=== PATIENT | male | born 1955 | race Caucasian/White ===

== ENCOUNTER 2023-03-15 14:20 | Inpatient (IN) ==
--- NOTE | 2023-03-15 14:27 | ED Triage Note ---
Date of Service March 15, 2023 History of Present Illness This patient was briefly evaluated while in triage. An abbreviated physical exam was performed. This patient is a 68-year-old Male who presents to the ED for evaluation of abdominal pain and decreased appetite. Symptoms started after a colonoscopy 1 month ago. He reports being admitted to hospital in [place] about 1 week ago for similar symptoms and treated to MATEUSZ and dehydration. He states symptoms feel the same as when he presented at that time. Reports chills, no fevers. Multiple episodes of vomiting and diarrhea. Reports colonoscopy was unremarkable. Referred to ED by PCP. Physical Exam Vital signs demonstrate hypotensive 70/48. HR 70 spO2 98 Constitutional: alert and oriented x3. no acute distress. Mentating appropriately Respiratory: lungs are clear to auscultation without wheezes, rhonchi, or rales bilaterally. equal chest rise. normal respiratory effort, no accessory muscle use. Cardiovascular: normal heart sounds without murmur. regular rate and rhythm. GI: abdomen is soft, nondistended. Mild tendernessnl bowel sounds present throughout. No palpable masses. No rebound tenderness or guarding. No CVA tenderness Psych:appropriate mood and affect. Initial orders for labs and / or imaging were placed and patient was taken immediately to room for further evaluation. Please see further documentation for the full ED course.
[2023-03-15] MEDS ORDERED: SODIUM CHLORIDE 0.9% 1000ML 1,000 ML IV STA (14:49)
[2023-03-15 15:19] LABS: iSTAT Creatinine 4.5 mg/dl (0.6-1.3); iSTAT Hemoglobin 16.7 g/dl (14.0-18.0); iSTAT Ionized Calcium 1.32 mmol/l (1.12-1.32)
[2023-03-15 15:27] LABS: Basophils # (auto) 0.03 K/uL (0-0.2); Basophils % (auto) 0.2 %; Eosinophils # (auto) 0.08 K/uL (0-0.50); Eosinophils % (auto) 0.6 %; Hematocrit (blood only) 46.2 % (42.0-52.0); Hemoglobin 15.7 g/dl (14.0-18.0); Immature Granulocytes # (auto) 0.06 K/uL (0.01-0.20); Immature Granulocytes % (auto) 0.5 %; Lymphocytes # (auto) 1.61 K/uL (1.2-3.4); Lymphocytes % (auto) 12.3 %; Mean Corpuscular Volume 97.1 fL (80.0-100.0); Mean Platelet Volume 9.6 fL (9.4-12.4); Monocytes # (auto) 1.41 K/uL (0.11-0.59); Monocytes % (auto) 10.8 %; Neutrophils # (auto) 9.89 K/uL (1.40-6.50); Neutrophils % (auto) 75.6 %; Platelet Count 334 K/uL (130-400); RDW Coefficient of Variation 13.8 % (11.5-14.5); RDW Standard Deviation 49.8 fL (36.4-46.3); Red Blood Count 4.76 M/uL (4.70-6.10); White Blood Count 13.08 K/ul (4.8-10.8)
--- NOTE | 2023-03-15 15:43 | XRay Report ---
XR chest 1V portable CLINICAL HISTORY: abd pain TECHNIQUE: Single frontal radiograph of the chest was obtained. Comparison: None available at the time of this dictation. FINDINGS: No lines and tubes are seen. The cardiomediastinal silhouette is normal. The lungs are clear. No evid ence of pleural effusion or pneumothorax. IMPRESSION: No acute chest disease. ACT 112: Negative or not required by law. Electronically signed by: Vance Lizarraga M.D. 03/15/2023 3:41 PM
[2023-03-15 15:47] LABS: Albumin Globulin Ratio 1.3 (0.9-2); Albumin Level 3.8 gm/dl (3.4-5.0); BUN Creatinine Ratio 16.5 (10-20); Bilirubin,Total 0.6 mg/dl (0.2-1.0); Calcium 9.2 mg/dl (8.6-10.3); Creatinine Clr Calc Pharmacy 22.9 ml/min; Est GFR (African American) 16.9 ml/min; Est GFR (Non-African American) 14.6 ml/min; Potassium 3.9 mmol/L (3.5-5.1); Total Protein 6.8 gm/dl (6.0-8.3)
--- NOTE | 2023-03-15 15:50 | Emergency Department Note ---
Impression & Plan Acute hypotension, Acute renal failure, Acute upper abdominal pain, Abnormal CT scan, gallbladder ED Provider Note INFORMANT: Patient and family ED PROVIDER(S): Lui English MD CHIEF COMPLAINT: Illness PLAN: Disposition: Admitted Condition: Good Outpatient prescription management: none Referral: None MEDICAL DECISION MAKING: Patient presented emergency [place] because of illness and was mildly hypotensive. He had an IV established and was given IV fluids. He received 2.5 L in the emergency department. His hypotension resolved. His work-up revealed the presence of a mild leukocytosis and a significant elevation of his creatinine concerning for acute renal failure. Cardiac troponin negative. The patient's LFTs and lipase negative. COVID pending. I suspect that this may be due to dehydration and partial. CT imaging of the abdomen pelvis was ordered. Radiology noted no significant issues regarding the renal failure however they raise concerns about his gallbladder. Ultrasound imaging of the gallbladder and kidneys was ordered. I discussed further management in the hospital with the patient and family. They were in agreement. [facility] Patient was evaluated in the ER and admitted for further management. Discussed with entry level account manager After review of the information above and other included data, I feel the patient requires admission. Triage Nursing notes reviewed and agree them. Vital Signs: reviewed and remarkable for hypotension Prior /Outside records reviewed: Prior Hospitalization record reviewed Differential diagnosis: hypovolemia, Infection, dehydration, metabolic abnormality, hypo/hyperglycemia, electrolyte disturbance, anemia, hypoxia, cardiac sources, intracerebral event, toxicologic, neurologic, as well as other pathologies. Diagnostics, as interpreted by me: ECG: Twelve-lead ECG reveals a sinus rhythm sinus arrhythmia at first-degree AV block at [address] elevation or depression. Cardiac Monitoring: Cardiac monitoring ordered by me: The patient was placed on continuous cardiac monitoring and observed. It revealed a normal sinus rhythm at 71 beats per minute without ectopy or evidence of dysrhythmia. Medical decision rules: none Imaging studies: CT imaging as noted above. HPI: The patient is a 68 year old male who presents to the Emergency Room with complaints of hypotension. This started today in the office at [facility] and is persisting. The patient also notes the following associated symptoms, abdominal pain, chills. Recent admission for dehydration due to N/V/D at [facility]. The patient has be given no medication today for relieving factors. Current pain is rated as 6/10. Pt denies LOC, headache, fevers, chills, diaphoresis, visual changes, neck pain, chest pain, breathing difficulties, nausea, vomiting, abdominal pain, back pain, melena, hematochezia, urinary symptoms, numbness, weakness, lymphadenopathy, rash, or other complaints. PAST MEDICAL HISTORY: See Below, Sarabjit PAST SURGICAL HISTORY: See Below, SOCIAL HISTORY: See Below, non-smoker HOME MEDICATIONS: See Below ALLERGIES: See Below VITALS: See Below PHYSICAL EXAMINATION: GENERAL: Awake, alert, tired-appearing, in no distress HENT: Normocephalic, atraumatic. Oropharynx unremarkable. EYES: Normal conjunctiva. Sclera non-icteric. NECK: Inspection normal. Non-tender. Supple. No nuchal rigidity. FROM. No masses. RESPIRATORY: Clear to auscultation. No wheezes. No rales. Normal respiratory effort. CARDIAC: Normal rate. Normal rhythm. No murmurs. No rubs. Extremities warm and well perfused. Pulses equal. No JVD. GI: Soft, non-distended. No tenderness to palpation. No rebound or guarding. No masses. RECTAL: Deferred. MUSCULOSKELETAL: Atraumatic. Chest examination reveals no tenderness. The back is symmetrical on inspection without obvious abnormality. There is no CVA tenderness to palpation. No joint edema. LOWER EXTREMITIES: Calves are equal size bilaterally and non-tender. No edema. No discoloration. NEURO: Normal sensorium. No sensory or motor deficits noted. SKIN: No rash or jaundice noted. Past Med/Surg History Medical History (Updated 03/15/23 @ 19:11 by Lui English MD) HTN (hypertension) Sinusitis ENT Dr. 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 Feels Safe at Home: Yes Home Meds Home Medications Medication Instructions Recorded Confirmed Saline Nasal Levasy 0 spray NA DIRECTED PRN Nasal 03/15/23 Congestion Vitamin E Tab 180 mg PO DAILY 03/15/23 amlodipine 10 mg tablet 5 mg PO DAILY 03/15/23 03/15/23 ascorbic acid (vitamin C) 1,000 mg 1,000 mg PO DIRECTED 03/15/23 03/15/23 capsule aspirin 81 mg tablet,delayed 81 mg PO DAILY 03/15/23 03/15/23 release (Adult Low Dose Aspirin) baclofen 10 mg tablet 10 mg PO TID 03/15/23 03/15/23 cetirizine 10 mg capsule (Zyrtec) 10 mg PO DAILY 03/15/23 03/15/23 cholecalciferol (vitamin D3) 50 50 mcg PO DAILY 03/15/23 03/15/23 mcg (2,000 unit) tablet (Vitamin D3) cyanocobalamin (vitamin B-12) 2,500 mcg sublingual DAILY 03/15/23 03/15/23 2,500 mcg sublingual lozenge diclofenac sodium 75 mg 75 mg PO BID 03/15/23 03/15/23 tablet,delayed release fluticasone propionate 50 2 spray intranasal DAILY 03/15/23 03/15/23 mcg/actuation nasal spray,suspension gabapentin 100 mg capsule 100 mg PO TID 03/15/23 03/15/23 glucosamine sulfate 750 mg tablet 750 mg PO DAILY 03/15/23 03/15/23 (OptiFlex-G) lactobacillus combination no.4 3 0 mmu cells PO DAILY 03/15/23 03/15/23 billion cell capsule (Probiotic) ondansetron 4 mg disintegrating 4 mg translingual Q8 PRN 03/15/23 03/15/23 tablet nausea/vomiting ondansetron 4 mg disintegrating mg 03/15/23 tablet tamsulosin 0.4 mg capsule 0.4 mg PO DAILY 03/15/23 03/15/23 Results & Data (ED) Vital Signs Vital Signs - 24 hr 03/15/23 14:23 03/15/23 14:41 03/15/23 14:40 Temperature 36.1 C L Temperature Source Temporal Artery Scan Pulse Rate 70 62 69 Respiratory Rate 20 17 Respiratory Effort / Characteristics Non-Labored Spontaneous Respiratory Depth Normal Blood Pressure 70/48 L 86/50 L Blood Pressure Mean 55 62 Pulse Oximetry 98 Oxygen Delivery Method Room Air Sepsis New/Unexplained Change in Mental Status N/A Sepsis Action Taken by Nursing No Action Required 03/15/23 15:00 03/15/23 15:30 03/15/23 16:00 Temperature Temperature Source Pulse Rate 63 62 59 L Respiratory Rate 16 15 19 Respiratory Effort / Characteristics Respiratory Depth Blood Pressure 78/48 L 78/47 L 86/48 L Blood Pressure Mean 58 57 60 Pulse Oximetry Oxygen Delivery Method Sepsis New/Unexplained Change in Mental Status Sepsis Action Taken by Nursing 03/15/23 16:30 03/15/23 17:00 03/15/23 17:36 Temperature Temperature Source Pulse Rate 69 61 71 Respiratory Rate 17 16 14 Respiratory Effort / Characteristics Respiratory Depth Blood Pressure 104/55 L 116/60 116/78 Blood Pressure Mean 71 78 90 Pulse Oximetry Oxygen Delivery Method Sepsis New/Unexplained Change in Mental Status Sepsis Action Taken by Nursing Laboratory Data 03/15/23 14:55 03/15/23 14:55 Lab Results 03/15/23 03/15/23 03/15/23 Range/Units 14:55 14:55 15:06 WBC 13.08 H (4.8-10.8) K/ul RBC 4.76 (4.70-6.10) M/uL Hgb 15.7 (14.0-18.0) g/dl POC Hgb 16.7 (14.0-18.0) g/dl Hct 46.2 (42.0-52.0) % POC Hct 49 (42-52) % MCV 97.1 (80.0-100.0) fL MCH 33.0 (25.0-34.0) pg MCHC 34.0 (32.0-36.0) g/dL RDW Std Deviation 49.8 H (36.4-46.3) fL RDW Coeff of Radha 13.8 (11.5-14.5) % Plt Count 334 (130-400) K/uL MPV 9.6 (9.4-12.4) fL Immature Gran % (Auto) 0.5 % Neut % (Auto) 75.6 % Lymph % (Auto) 12.3 % Drew % (Auto) 10.8 % Eos % (Auto) 0.6 % Baso % (Auto) 0.2 % Neut # (Auto) 9.89 H (1.40-6.50) K/uL Lymph # (Auto) 1.61 (1.2-3.4) K/uL Drew # (Auto) 1.41 H (0.11-0.59) K/uL Eos # (Auto) 0.08 (0-0.50) K/uL Baso # (Auto) 0.03 (0-0.2) K/uL Immature Gran # (Auto) 0.06 (0.01-0.20) K/uL POC Sodium 139 (135-144) mmol/L Sodium 137 (136-145) mmol/L POC Potassium 4.0 (3.3-5.0) mmol/L Potassium 3.9 (3.5-5.1) mmol/L POC Chloride 116 H (101-112) mmol/L Chloride 114 H (98-107) mmol/L Carbon Dioxide 12 L (21-32) mmol/L POC Total CO2 13 L (24-31) mmol/L Anion Gap 11 (3-11) POC Anion Gap 15.0 L (16-25) mmol/L POC BUN 58 H (7-18) mg/dl BUN 66 H (6-23) mg/dl Creatinine 3.99 H (0.6-1.4) mg/dl POC Creatinine 4.5 H (0.6-1.3) mg/dl Est Cr Clr Drug Dosing 22.9 ml/min Est GFR ( Amer) 16.9 ml/min Est GFR (Non-Af Amer) 14.6 ml/min BUN/Creatinine Ratio 16.5 (10-20) Glucose 96 (70-99(Fasting)) mg/dl POC Glucose (other) 101 H (70-99) mg/dl Calcium 9.2 (8.6-10.3) mg/dl POC Ioniz Calcium Elvia 1.32 (1.12-1.32) mmol/l Total Bilirubin 0.6 (0.2-1.0) mg/dl AST 19 (13-39) U/L ALT 31 (7-52) U/L Alkaline Phosphatase 73 (34-104) U/L Troponin I High Sens 13.0 (0-20) pg/ml Total Protein 6.8 (6.0-8.3) gm/dl Albumin 3.8 (3.4-5.0) gm/dl Globulin 3.0 (2.5-4.0) gm/dl Albumin/Globulin Ratio 1.3 (0.9-2) Lipase 66 (11-82) U/L Administered Medications Sodium Chloride (Nss 1000ml) 1,000 mls @ 200 mls/hr IV .Q5H INGRID Stop: 04/14/23 18:14 Last Admin: 03/15/23 18:16 Dose: 200 mls/hr Documented By: KAVIN Discontinued Medications Sodium Chloride (Nss 1000ml) 1,000 mls @ 999 mls/hr IV .Q1H1M STA Stop: 03/15/23 15:49 Last Infusion: 03/15/23 16:41 Dose: 0 mls/hr Documented By: Admin: 03/15/23 15:16 Dose: 999 mls/hr Documented By: KAVIN Sodium Chloride (Nss 1000ml) 1,000 mls @ 999 mls/hr IV .Q1H1M ONE Stop: 03/15/23 17:09 Last Infusion: 03/15/23 18:00 Dose: 0 mls/hr Documented By: Admin: 03/15/23 16:42 Dose: 999 mls/hr Documented By: HARSH Imaging Data Radiologist's Impression: Chest X-Ray 03/15/23 14:30 XR chest 1V portable CLINICAL HISTORY: abd pain TECHNIQUE: Single frontal radiograph of the chest was obtained. Comparison: None available at the time of this dictation. FINDINGS: No lines and tubes are seen. The cardiomediastinal silhouette is normal. The lungs are clear. No evidence of pleural effusion or pneumothorax. IMPRESSION: No acute chest disease. ACT 112: Negative or not required by law. Electronically signed by: Vance Lizarraga M.D. 03/15/2023 3:41 PM Abdomen/Pelvis CT 03/15/23 16:02 CT abd pelvis wo con CLINICAL HISTORY: abdominal pain TECHNIQUE: Helical axial images of the abdomen and pelvis were obtained. Automated dose lowering techniques and/or adjustment according to patient size were utilized for this exam. This exam was performed without intravenous contrast. CT DOSE: 1057.50 mGy.cm COMPARISON: None available at the time of this dictation. FINDINGS: Lower chest: Bibasilar atelectasis versus scarring is seen. Moderate to severe atherosclerotic disease is seen in the coronary arteries. Liver: Unremarkable. No focal lesions are seen. Gallbladder and biliary tree: Prominence of the gallbladder is seen. The gallbladder wall is not well delineated. No pericholecystic fluid is seen. No intra- or extrahepatic biliary ductal dilation. Pancreas: Unremarkable, no focal lesions. Spleen: Unremarkable. Adrenals: Unremarkable. Kidneys and ureters: Unremarkable. Bladder: Diffuse homogeneous wall thickening is seen. Reproductive organs: Prostatomegaly is seen. Bowel: Diverticulosis is seen without evidence of diverticulitis. The appendix is unremarkable. Lymph nodes Retroperitoneal: Unremarkable. Pelvic: Unremarkable. Mesenteric: Unremarkable. Peritoneum: Normal. Vessels: Unremarkable. Abdominal wall: Unremarkable. Bones: Degenerative changes in the visualized spine. IMPRESSION: 1. There is prominence of the gallbladder, the wall is difficult to delineate. Physical exam correlation for acute cholecystitis is recommended in right upper quadrant ultrasound can be performed if desired. 2. No bowel obstruction. Diverticulosis is seen without diverticulitis. 3. Chronic bladder outlet obstruction. ACT 112: Negative or not required by law. Electronically signed by: Vance Lizarraga M.D. 03/15/2023 6:03 PM Discharge Plan Visit Data Chief Complaint: Illness Stated Complaint: RENAL FAILURE ED Provider: Lui English ED Midlevel Provider: Sen Wilcox Discharge Problem: Acute hypotension, Acute renal failure, Acute upper abdominal pain, Abnormal CT scan, gallbladder Forms Stand Alone Forms: [facility] Prescriptions Prescriptions: No Action baclofen 10 mg tablet 10 mg PO TID amlodipine 10 mg tablet 5 mg PO DAILY Rx Instructions: Take 1/2 tab diclofenac sodium 75 mg tablet,delayed release (DR/EC) 75 mg PO BID gabapentin 100 mg capsule 100 mg PO TID ondansetron 4 mg tablet,disintegrating fluticasone propionate 50 mcg/actuation spray,suspension 2 spray INTRANASAL DAILY aspirin [Adult Low Dose Aspirin] 81 mg tablet,delayed release (DR/EC) 81 mg PO DAILY tamsulosin 0.4 mg capsule 0.4 mg PO DAILY ondansetron 4 mg tablet,disintegrating 4 mg translingual Q8 PRN (Reason: nausea/vomiting) glucosamine sulfate [OptiFlex-G] 750 mg Tablet 750 mg PO DAILY Rx Instructions: administer with a meal cholecalciferol (vitamin D3) [Vitamin D3] 50 mcg (2,000 unit) Tablet 50 mcg PO DAILY Zyrtec 10 mg Capsule 10 mg PO DAILY Probiotic 3 billion cell Capsule 0 mmu cells PO DAILY Rx Instructions: administer with a meal cyanocobalamin (vitamin B-12) 2,500 mcg lozenge 2,500 mcg sublingual DAILY ascorbic acid (vitamin C) 1,000 mg capsule 1,000 mg PO DIRECTED Rx Instructions: Take 1 tab daily in winter Saline Nasal Levasy 0 spray NA DIRECTED PRN (Reason: Nasal Congestion) Vitamin E Tab 180 mg PO DAILY Referrals Referrals: PCP,NO [Physician] -
--- NOTE | 2023-03-15 15:52 | Electrocardiogram Report ---
Test Reason : Blood Pressure : / mmHG Vent. Rate : 062 BPM Atrial Rate : 062 BPM P-R Int : 338 ms QRS Dur : 096 ms QT Int : 386 ms P-R-T Axes : 016 005 016 degrees QTc Int : 391 ms Sinus rhythm with sinus arrhythmia with 1st degree A-V block Otherwise normal ECG No previous ECGs available Confirmed by Marc Sevilla ([id number]) on 03/15/2023 3:52:35 PM Referred By: Confirmed By:Marc Sevilla
[2023-03-15] MEDS ORDERED: SODIUM CHLORIDE 0.9% 1000ML 1,000 ML IV ONE (16:09)
--- NOTE | 2023-03-15 17:22 | Communication Note ---
Date of Service: March 15, 2023 Resident attestation note for emergency department patient. I saw this patient today and discussed my findings w/ Dr. English who has examined the patient independently. Please see his documentation.
--- NOTE | 2023-03-15 18:05 | CT Scan Report ---
CT abd pelvis wo con CLINICAL HISTORY: abdominal pain TECHNIQUE: Helical axial images of the abdomen and pelvis were obtained. Automated dose lowering tech niques and/or adjustment according to patient size were utilized for this exam. This exam was perfor med without intravenous contrast. CT DOSE: 1057.50 mGy.cm COMPARISON: None available at the time of this dictation. FINDINGS: Lower chest: Bibasilar atelectasis versus scarring is seen. Moderate to severe atherosclerotic disea se is seen in the coronary arteries. Liver: Unremarkable. No focal lesions are seen. Gallbladder and biliary tree: Prominence of the gallbladder is seen. The gallbladder wall is not well delineated. No pericholecystic fluid is seen. No intra- or extrahepatic biliary ductal dilation. Pancreas: Unremarkable, no focal lesions. Spleen: Unremarkable. Adrenals: Unremarkable. Kidneys and ureters: Unremarkable. Bladder: Diffuse homogeneous wall thickening is seen. Reproductive organs: Prostatomegaly is seen. Bowel: Diverticulosis is seen without evidence of diverticulitis. The appendix is unremarkable. Lymph nodes Retroperitoneal: Unremarkable. Pelvic: Unremarkable. Mesenteric: Unremarkable. Peritoneum: Normal. Vessels: Unremarkable. Abdominal wall: Unremarkable. Bones: Degenerative changes in the visualized spine. IMPRESSION: 1. There is prominence of the gallbladder, the wall is difficult to delineate. Physical exam correla tion for acute cholecystitis is recommended in right upper quadrant ultrasound can be performed if de sired. 2. No bowel obstruction. Diverticulosis is seen without diverticulitis. 3. Chronic bladder outlet obstruction. ACT 112: Negative or not required by law. Electronically signed by: Vance Lizarraga M.D. 03/15/2023 6:03 PM
[2023-03-15] MEDS ORDERED: SODIUM CHLORIDE 0.9% 1000ML 1,000 ML IV SCH (18:15)
--- NOTE | 2023-03-15 19:40 | History & Physical Report ---
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 Unremarkable colonoscopy 02/17/2023 with Dulcolax bowel prep. 2 to 3 days post colonoscopy patient started with diarrhea approximately 10 episodes a day. Hospitalized at [facility] 03/03-03/06 secondary to MATEUSZ with admitting creatinine of 3.49. Stool studies negative. Treated with IV hydration and creatinine upon discharge was 0.88. Patient continued to have loose stool although less frequency until taking Augmentin for 2 days 1 week ago. Continues to have multiple episodes of loose, watery diarrhea. No significant abdominal pain. No known sick contacts. Very poor p.o. intake, although is tolerating liquids to a degree. Acute renal failure Acute hypotension -resolved Non-anion gap metabolic acidosis Admit to telemetry IV fluid 100 cc/h urine studies, UA, culture, protein, na, chl, K, osm consult nephro due to recurrent mateusz likely in setting of GI loss, hypotension, likely pre renal vs ATN given hypotension of unknown duration consult GI 2/2 diarrhea repeat stool studies avoid nephrotoxic agents, hold diclofenac Bladder/RP US and GB US ordered consult gastroenterology and nephrology HTN hold amlodipine given hypotension Lumbar spinal stenosis continue gabapentin, baclofen DVT ppx: SQ Heparin Dispo: tele FULL CODE PCP: Rena Andre, DO [place] A total of 75 minutes was spent with greater than 50% of that time personally viewing all current laboratory work and diagnostic imaging studies obtained in the ED. Additionally, I was able to view the patients past medication reconciliation and history with direct visualization in the patients chart. Included in the time above, a portion of that time was spent assessing the patient while discussing and collaborating with specialists, if necessary, and making medical decision making on treatment plan. All of the above was collaborated with Dr. Mcneil. Please see addendum for further details. History of Present Illness Chief Complaint: MATEUSZ, referred by PCP. 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 His PCP is in [place]. Of significance he had a colonoscopy February 17, 2023 and he states he has been downhill ever since. He took 2 Dulcolax for colonoscopy prep and 2 days post colonoscopy was doing well. After then he developed watery diarrhea approximately 10 episodes a day. This continued and ended up in a hospitalization at [facility] secondary to dehydration and MATEUSZ. His creatinine on admission was 3.49. He was treated with IV hydration given magnesium supplementation and creatinine down trended to 0.8 at discharge. He continued to have diarrhea and significant poor p.o. intake with lack of appetite. Approximately 1 week ago ENT tried placing him on Augmentin for sinusitis and stopped after 2 days due to worsening diarrhea. He has even tried probiotics. He states he is at wits end and just wants to feel better. He was seen by PCP today and had OP labs done. This showed a cr of ~ 3.5 and he was hypotensive at todays visit. He was then referred to ED and opted to travel to [facility] for 2nd opinion. In ED patient was initially hypotensive with systolic blood pressure in the 70s. Admitting creatinine is 3.99 with a BUN of 66. He has a known anion gap metabolic acidosis. He is mild elevation of white count at 13,000. He received 2 L of IV fluids which improved his blood pressure. Home Medications Medication Instructions Recorded Confirmed Type amlodipine 10 mg tablet 5 mg PO DAILY 03/15/23 03/15/23 History ascorbic acid (vitamin C) 1,000 mg 1,000 mg PO DIRECTED 03/15/23 03/15/23 History capsule aspirin 81 mg tablet,delayed 81 mg PO DAILY 03/15/23 03/15/23 History release (Adult Low Dose Aspirin) baclofen 10 mg tablet 10 mg PO TID 03/15/23 03/15/23 History cetirizine 10 mg capsule (Zyrtec) 10 mg PO DAILY 03/15/23 03/15/23 History cholecalciferol (vitamin D3) 50 50 mcg PO DAILY 03/15/23 03/15/23 History mcg (2,000 unit) tablet (Vitamin D3) cyanocobalamin (vitamin B-12) 2,500 mcg sublingual DAILY 03/15/23 03/15/23 History 2,500 mcg sublingual lozenge diclofenac sodium 75 mg 75 mg PO BID 03/15/23 03/15/23 History tablet,delayed release diphenoxylate-atropine 2.5 2 tab PO TID PRN Diarrhea 03/15/23 03/15/23 History mg-0.025 mg tablet fluticasone propionate 50 2 spray intranasal DAILY 03/15/23 03/15/23 History mcg/actuation nasal spray,suspension gabapentin 100 mg capsule 100 mg PO TID 03/15/23 03/15/23 History glucosamine sulfate 750 mg tablet 750 mg PO DAILY 03/15/23 03/15/23 History (OptiFlex-G) lactobacillus combination no.4 3 0 mmu cells PO DAILY 03/15/23 03/15/23 History billion cell capsule (Probiotic) ondansetron 4 mg disintegrating 4 mg translingual Q8 PRN 03/15/23 03/15/23 History tablet nausea/vomiting tamsulosin 0.4 mg capsule 0.4 mg PO DAILY 03/15/23 03/15/23 History Past Med/Surg History Medical History HTN (hypertension) Sinusitis ENT Dr. 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 Normal insp/exp effort, no accessory muscle use Cardiovascular: RRR, no murmur, no edema Vessels: no JVD or carotid bruit Chest: normal inspection of chest Abdomen: normal bowel sounds, soft, nontender, no hepatosplenomegaly Musculoskeletal: no cyanosis or clubbing, extremities motor strength 5/5 Skin: no rashes, warm and dry normal turgor Neurologic: PERRL, EOMI, accommodation nl, no face palsy, no dysarthria CN's II-XI intact bilaterally and moves all extremities Psychiatric: A+Ox3, euthymic affect Lymphatic: no cervical or axillary lymphadenopathy : deferred Results & Data Results & Data Vital Signs (Past 12 Hours) Vital Signs Temp Pulse Resp BP Pulse Ox O2 Del Method 03/15/23 18:41 65 03/15/23 17:36 71 14 116/78 03/15/23 17:00 61 16 116/60 03/15/23 16:30 69 17 104/55 L 03/15/23 16:00 59 L 19 86/48 L 03/15/23 15:30 62 15 78/47 L 03/15/23 15:00 63 16 78/48 L 03/15/23 14:40 69 17 86/50 L 03/15/23 14:41 62 03/15/23 14:23 36.1 C L 70 20 70/48 L 98 Room Air Diagnostic Findings Chest X-Ray 03/15/23 14:30 XR chest 1V portable CLINICAL HISTORY: abd pain TECHNIQUE: Single frontal radiograph of the chest was obtained. Comparison: None available at the time of this dictation. FINDINGS: No lines and tubes are seen. The cardiomediastinal silhouette is normal. The lungs are clear. No evidence of pleural effusion or pneumothorax. IMPRESSION: No acute chest disease. ACT 112: Negative or not required by law. Electronically signed by: Vance Lizarraga M.D. 03/15/2023 3:41 PM Abdomen/Pelvis CT 03/15/23 16:02 CT abd pelvis wo con CLINICAL HISTORY: abdominal pain TECHNIQUE: Helical axial images of the abdomen and pelvis were obtained. Automated dose lowering techniques and/or adjustment according to patient size were utilized for this exam. This exam was performed without intravenous contrast. CT DOSE: 1057.50 mGy.cm COMPARISON: None available at the time of this dictation. FINDINGS: Lower chest: Bibasilar atelectasis versus scarring is seen. Moderate to severe atherosclerotic disease is seen in the coronary arteries. Liver: Unremarkable. No focal lesions are seen. Gallbladder and biliary tree: Prominence of the gallbladder is seen. The gallbladder wall is not well delineated. No pericholecystic fluid is seen. No intra- or extrahepatic biliary ductal dilation. Pancreas: Unremarkable, no focal lesions. Spleen: Unremarkable. Adrenals: Unremarkable. Kidneys and ureters: Unremarkable. Bladder: Diffuse homogeneous wall thickening is seen. Reproductive organs: Prostatomegaly is seen. Bowel: Diverticulosis is seen without evidence of diverticulitis. The appendix is unremarkable. Lymph nodes Retroperitoneal: Unremarkable. Pelvic: Unremarkable. Mesenteric: Unremarkable. Peritoneum: Normal. Vessels: Unremarkable. Abdominal wall: Unremarkable. Bones: Degenerative changes in the visualized spine. IMPRESSION: 1. There is prominence of the gallbladder, the wall is difficult to delineate. Physical exam correlation for acute cholecystitis is recommended in right upper quadrant ultrasound can be performed if desired. 2. No bowel obstruction. Diverticulosis is seen without diverticulitis. 3. Chronic bladder outlet obstruction. ACT 112: Negative or not required by law. Electronically signed by: Vance Lizarraga M.D. 03/15/2023 6:03 PM Medications Administered Medication List Sodium Chloride (Nss 1000ml) 1,000 mls @ 200 mls/hr IV .Q5H INGRDI Stop: 04/14/23 18:14 Last Admin: 03/15/23 18:16 Dose: 200 mls/hr Documented By: NRB Discontinued Medications Sodium Chloride (Nss 1000ml) 1,000 mls @ 999 mls/hr IV .Q1H1M STA Stop: 03/15/23 15:49 Last Infusion: 03/15/23 16:41 Dose: 0 mls/hr Documented By: Admin: 03/15/23 15:16 Dose: 999 mls/hr Documented By: KAVIN Sodium Chloride (Nss 1000ml) 1,000 mls @ 999 mls/hr IV .Q1H1M ONE Stop: 03/15/23 17:09 Last Infusion: 03/15/23 18:00 Dose: 0 mls/hr Documented By: Admin: 03/15/23 16:42 Dose: 999 mls/hr Documented By: HARSH ECG Rate (beats per minute): 62 Additional Comments: sinus rhythm with sinus arrhythmia COVID-19 Results Results COVID-19 Adm Lab Results: RBC 4.76 M/uL (4.70-6.10) 03/15/23 WBC 13.08 K/ul (4.8-10.8) H 03/15/23 Hgb 15.7 g/dl (14.0-18.0) 03/15/23 Hct 46.2 % (42.0-52.0) 03/15/23 Plt Count 334 K/uL (130-400) 03/15/23 Neutrophils (%) (Auto) 75.6 % 03/15/23 Lymphocytes (%) (Auto) 12.3 % 03/15/23 Monocytes # (Auto) 1.41 K/uL (0.11-0.59) H 03/15/23 Eosinophils # (Auto) 0.08 K/uL (0-0.50) 03/15/23 Immature Granulocyte % (Auto) 0.5 % 03/15/23 Neutrophils # (Auto) 9.89 K/uL (1.40-6.50) H 03/15/23 Lymphocytes # (Auto) 1.61 K/uL (1.2-3.4) 03/15/23 Monocytes # (Auto) 1.41 K/uL (0.11-0.59) H 03/15/23 Eosinophils # (Auto) 0.08 K/uL (0-0.50) 03/15/23 Basophils # (Auto) 0.03 K/uL (0-0.2) 03/15/23 Immature Granulocyte # (Auto) 0.06 K/uL (0.01-0.20) 3 Na 137 mmol/L (136-145) 03/15/23 K 3.9 mmol/L (3.5-5.1) 03/15/23 Cl 114 mmol/L (98-107) H 03/15/23 CO2 12 mmol/L (21-32) L 03/15/23 Anion Gap 11 (3-11) 03/15/23 BUN 66 mg/dl (6-23) H 03/15/23 Creatinine 3.99 mg/dl (0.6-1.4) H 03/15/23 BUN/Creatinine Ratio 16.5 (10-20) 03/15/23 Glucose Level 96 mg/dl (70-99(Fasting)) 03/15/23 Ca 9.2 mg/dl (8.6-10.3) 03/15/23 Total Bilirubin 0.6 mg/dl (0.2-1.0) 03/15/23 AST/SGOT 19 U/L (13-39) 03/15/23 ALT/SGPT 31 U/L (7-52) 03/15/23 Alkaline Phosphatase 73 U/L (34-104) 03/15/23 Total Protein 6.8 gm/dl (6.0-8.3) 03/15/23 Albumin 3.8 gm/dl (3.4-5.0) 03/15/23 Globulin 3.0 gm/dl (2.5-4.0) 03/15/23 Albumin/Globulin Ratio 1.3 (0.9-2) 03/15/23 SARS-CoV-2, RNA, NAAT NEGATIVE (NEGATIVE) 03/15/23 Chest X-Ray 03/15/23 Code Status & VTE Plan Code Status FULL CODE VTE Prophylaxis Plan VTE Prophylaxis will be ordered: Yes Supervising Physician Co-Signing Physician Notes I have seen and examined the patient and have discussed the case with the provider above. I agree with the assessment and plan as stated. 68-year-old man with no history of trouble with his bowels presents with persistent diarrhea and acute renal failure. He is clearly dehydrated and reports a loss of 30 pounds in the last month. He was recently hospitalized and underwent a colonoscopy with additional work-up negative for infection. After hydration his creatinine was 0.9 however now it is back up to 3.99. Patient and report he has not eaten anything for up to 5 days. He has had issues with vomiting and has poor appetite. He now reports a new epigastric pressure. He denies any blood in vomit or blood per rectum. He denies any fever. On physical exam mucous membranes are very dry and he is overtly dehydrated. He is lethargic but in no acute distress. He can awaken and orient and carry on a conversation but is weak and demonstrates low energy. Abdomen is soft nontender nondistended. Skin is warm and dry. Cardiac exam reveals S1-S2 heard with no murmurs gallops or rubs. Lungs are clear to auscultation throughout. No peripheral edema is seen. CBC reveals a mild leukocytosis of 13 K with a normal H&H of 15.7/46.2. Platelets are normal. Chemistry reveals a sodium of 137, potassium 3.9, chloride 114, bicarb of 12, anion gap of 11, BUN 66, creatinine 3.99. Glucose calcium and liver function panel are normal. Lipase is normal at 66. Imaging includes a CT abdomen pelvis without contrast revealing a nonspecific prominence of the gallbladder and diverticulosis as well as chronic bilateral bladder outlet obstruction. A chest x-ray is negative for acute chest disease. An EKG reveals sinus rhythm with a rate of 62 and first-degree AV block. 1. Acute renal failure 2. Hypotension 3. Electrolyte abnormality 4. None anion gap metabolic acidosis 5. Dehydration secondary to ongoing diarrhea and poor p.o. intake 6. Significant weight loss-malnutrition Agree with rehydration efforts both IV and oral. Consult nephrology and proceed with renal ultrasound. Agree with consulting GI given the ongoing diarrhea and abdominal pressure. Follow-up colonoscopy results from outpatient facility including any biopsies that may be pending. Continue work-up with urine studies overnight and repeating BMP in a.m. after rehydration efforts. Avoid nephrotoxic substances including NSAIDs and contrast. Nutrition consult. May need to explore parenteral nutrition sometime sooner than later. DO Tarun
[2023-03-15] MEDS ORDERED: MAGNESIUM HYDROXIDE SUSP 30 ML UDC PO PRN (21:51)
[2023-03-15] MEDS ORDERED: ONDANSETRON INJ 2 MG/ML 2 ML VIAL IV PRN (21:51)
[2023-03-15] MEDS ORDERED: POLYETHYLENE (MIRALAX) 17 GM PACK PO PRN (21:51)
[2023-03-15] MEDS ORDERED: ALUMINUM/MAGNESIUM SUSP 30 ML UDC PO PRN (21:51)
[2023-03-15] MEDS ORDERED: ACETAMINOPHEN 325 MG TAB PO PRN (21:51)
[2023-03-15] MEDS ORDERED: Patient's ALLERGY Info needs ENTERED STA (21:54)
[2023-03-15] MEDS: BACLOFEN 10 MG TAB PO SCH (22:16)
[2023-03-15] MEDS: SODIUM CHLORIDE 0.9% 1000ML 1,000 ML IV SCH (22:16)
--- NOTE | 2023-03-15 22:33 | Ultrasound Report ---
Exam(s): US GALLBLADDER EXAM: US Abdomen Limited, Gallbladder CLINICAL HISTORY: Evaluate for cholecystitis. TECHNIQUE: Real-time ultrasound of the right upper quadrant with image documentation. COMPARISON: Unenhanced CT abdomen and pelvis performed earlier the same day. FINDINGS: Liver: The liver is hyperechoic and enlarged, measuring 20 cm in length. The portal vein is pain with flow directed towards the liver. Gallbladder: The gallbladder is distended and is somewhat hydropic in appearance, as noted on the previous CT examination. No cholelithiasis. The gallbladder wall measures 4.5 mm. Questionable trace pericholecystic fluid. The reported sonographic Carrasquillo sign is indeterminant to slightly positive. Common bile duct: The common bile duct measures 4.2 mm. No stones. No dilation. Pancreas: Unremarkable as visualized. Right kidney: The right kidney is unremarkable without hydronephrosis or obstructing nephrolithiasis. IMPRESSION: 1. The gallbladder is distended and is somewhat hydropic in appearance, as noted on the previous CT examination. No cholelithiasis. However, the gallbladder wall is prominent with questionable trace pericholecystic fluid. The reported sonographic Carrasquillo sign is indeterminate to slightly positive. Subtle developing acalculous cholecystitis is difficult to exclude on this examination. Functional radionuclide imaging of the gallbladder may provide additional information and clinically equivocal cases. 2. No biliary dilatation. Electronically signed by: Eric Olvera MD 03/15/23 22:31 PM
--- NOTE | 2023-03-15 22:35 | Ultrasound Report ---
Exam(s): US RENAL EXAM: US Retroperitoneal Limited, Renal CLINICAL HISTORY: Acute renal failure. TECHNIQUE: Real-time limited ultrasound of the retroperitoneum with image documentation. COMPARISON: Unenhanced CT abdomen and pelvis performed earlier the same day. FINDINGS: Right kidney: The right kidney measures 12.5 cm. No stones. No hydronephrosis. Left kidney: The left kidney measures 12.7 cm. No stones. No hydronephrosis. Bladder: Bladder is mild to moderately distended. Bilateral ureteral jets noted. The prostate gland is prominent, although not specifically measured, but demonstrates some impression on the inferior aspect of the bladder. IMPRESSION: The kidneys are unremarkable bilaterally without hydronephrosis or obstructive nephrolithiasis. Electronically signed by: Eric Olvera MD 03/15/23 22:34 PM
[2023-03-15] MEDS ORDERED: Patient's ALLERGY Info needs ENTERED SCH (23:45)
[2023-03-15] MEDS ORDERED: Nursing to Pharmacy Communication SCH (23:45)
[2023-03-15] MEDS: GABAPENTIN 100 MG CAP PO SCH (23:52)
[2023-03-16 00:36] LABS: Appearance Urine Cloudy (Clear); Bacteria Urine Automated Negative (Negative); Bilirubin Urine Negative (Negative); Blood Urine Negative (Negative); Color Urine Dark Yellow; Epithelial Cell Urine Auto >30 /lpf (0-5); Glucose Urine UA Negative (Negative); Ketones Urine Trace (Negative); Leukocyte Esterase Urine Negative (Negative); Nitrite Urine Negative (Negative); Protein Urine 1+ (Negative); Specific Gravity Urine 1.016 (1.000-1.030); Urobilinogen Urine Negative (Negative)
[2023-03-16] MEDS: SODIUM CHLORIDE 0.9% 1000ML 1,000 ML IV SCH (00:40)
[2023-03-16] MEDS: HEPARIN SOD 5,000 UNIT/0.5 ML VIAL SQ SCH ×4 (00:40→21:50)
[2023-03-16 00:44] LABS: Potassium Random Urine 12.2 mmol/L; Total Protein Urine Random 98.3 mg/dl (0-11.9)
[2023-03-16 00:49] LABS: Creatinine Urine Random 120.7 mg/dl; Protein Creatinine Ratio Urine 0.8 (0-0.2)
[2023-03-16 07:34] LABS: Basophils # (auto) 0.02 K/uL (0-0.2); Basophils % (auto) 0.2 %; Eosinophils # (auto) 0.09 K/uL (0-0.50); Eosinophils % (auto) 0.7 %; Hematocrit (blood only) 38.6 % (42.0-52.0); Hemoglobin 13.2 g/dl (14.0-18.0); Immature Granulocytes # (auto) 0.07 K/uL (0.01-0.20); Immature Granulocytes % (auto) 0.5 %; Lymphocytes # (auto) 0.99 K/uL (1.2-3.4); Lymphocytes % (auto) 7.6 %; Mean Corpuscular Hemoglobin 32.3 pg (25.0-34.0); Mean Corpuscular Hgb Conc 34.2 g/dL (32.0-36.0); Mean Corpuscular Volume 94.4 fL (80.0-100.0); Mean Platelet Volume 9.9 fL (9.4-12.4); Monocytes # (auto) 1.54 K/uL (0.11-0.59); Monocytes % (auto) 11.8 %; Neutrophils # (auto) 10.32 K/uL (1.40-6.50); Neutrophils % (auto) 79.2 %; Platelet Count 303 K/uL (130-400); RDW Coefficient of Variation 13.6 % (11.5-14.5); Red Blood Count 4.09 M/uL (4.70-6.10); White Blood Count 13.03 K/ul (4.8-10.8)
[2023-03-16 07:53] LABS: Albumin Globulin Ratio 1.4 (0.9-2); Albumin Level 3.3 gm/dl (3.4-5.0); BUN Creatinine Ratio 24.1 (10-20); Bilirubin,Total 0.5 mg/dl (0.2-1.0); Calcium 8.5 mg/dl (8.6-10.3); Creatinine Clr Calc Pharmacy 38.5 ml/min; Est GFR (African American) 31.7 ml/min; Est GFR (Non-African American) 27.3 ml/min; Globulin 2.3 gm/dl (2.5-4.0); Magnesium 1.6 mg/dl (1.7-2.4); Potassium 3.8 mmol/L (3.5-5.1); Total Protein 5.6 gm/dl (6.0-8.3)
[2023-03-16] MEDS: BACLOFEN 10 MG TAB PO SCH ×3 (08:13→20:24)
[2023-03-16] MEDS: GABAPENTIN 100 MG CAP PO SCH ×3 (08:13→20:24)
[2023-03-16] MEDS: CETIRIZINE HCL 10 MG TABLET PO SCH (08:14)
[2023-03-16] MEDS: CHOLECALCIFEROL 1,000 UNITS 25 MCG TAB PO SCH (08:14)
[2023-03-16] MEDS: FLUTICASONE PROPIONATE NA SPR 16 GM BTL SCH (08:14)
[2023-03-16] MEDS: MAGNESIUM SULFATE / D5W 1 GM/100 ML BAG IV SCH ×2 (08:26→10:21)
--- NOTE | 2023-03-16 08:59 | Hospitalist Progress Note ---
Date of Service March 16, 2023 Assessment & Plan (1) Acute renal failure: Plan: Improved creatinine from 4 to 2.3 today. Cont IVF. NAGMA present 2/2 bicarbonate loss in diarrhea. Cont to workup diarrhea per gI (2) Acute hypotension: Plan: resolved. Cont to avoid olmesartan given hypotension and possible connection with this medication to development of sprue. (3) Metabolic acidosis, NAG, bicarbonate losses: Plan: 2/2 diarrhea. Cont per GI team. Planned for flex sig in am. (4) Diarrhea: Plan: I spoke with his by phone and updated her with the plan. I spent a total [id number] coordinating, documenting, and providing care for this patient excluding time spent in the performance of separately billed services [facility] and [facility]tic[facility]ated Discharge Date Admission Date: March 15, 2023 Subjective 68 yo M with excessive diarrhea for the past 4 weeks, uncertain etiology creat improved today and he is more alert than on admission he reports no issues and states he had 4 BMs today. planned for flex sig in am per GI team Review of Systems Review of Systems: All systems were reviewed and negative except as indicated on subjective abov.e Physical Exam Physical Exam: CONSTITUTIONAL: WNWD, vitals as above, generally well-appearing, NAD EYES: normal conjunctivae, no scleral icterus ENT: external ear and nose normal, MMM NECK: trachea midline RESPIRATORY: clear to auscultation bilaterally, no crackles, rales or wheezes, normal respiratory effort CARDIOVASCULAR: regular rate and rhythm, S1 and 2 heard without murmurs, gallops or rubs, no JVD, no peripheral edema CHEST: inspection of chest was normal GASTROINTESTINAL: soft, nontender, ND, no guarding MUSCULOSKELETAL: strength 5/5 throughout, head is normocephalic and atraumatic SKIN: warm and dry NEUROLOGIC: CN 2-12 grossly intact, no sensory deficit, normal cognition, normal speech, no tremor PSYCHIATRIC: alert cooperative and oriented to person, place and time. Euthymic mood, makes good eye contact, language grossly intact, recent and remote memory grossly intact. Results & Data Results & Data Vital Signs (Past 12 Hours) Vital Signs Temp Pulse Pulse Resp BP BP Pulse Ox 03/16/23 06:12 77 03/16/23 07:33 36.7 C 85 16 93 03/16/23 03:03 36.5 C 72 18 119/68 95 03/16/23 01:08 78 03/16/23 00:57 36.4 C L 83 18 99/60 L 95 03/15/23 23:36 36.4 C L 83 18 99/60 L 95 03/15/23 22:57 72 15 115/65 03/15/23 22:00 75 18 125/68 96 03/15/23 21:00 65 14 129/63 97 O2 Del Method 03/16/23 06:12 03/16/23 07:33 Room Air 03/16/23 03:03 Room Air 03/16/23 01:08 03/16/23 00:57 Room Air 03/15/23 23:36 Room Air 03/15/23 22:57 03/15/23 22:00 Room Air 03/15/23 21:00 Laboratory Results Short CBC 03/15/23 03/16/23 Range/Units 14:55 06:47 WBC 13.08 H 13.03 H (4.8-10.8) K/ul Hgb 15.7 13.2 L (14.0-18.0) g/dl Hct 46.2 38.6 L (42.0-52.0) % Plt Count 334 303 (130-400) K/uL BMP 03/15/23 03/16/23 14:55 06:47 Sodium 137 141 Potassium 3.9 3.8 Chloride 114 H 120 H Carbon Dioxide 12 L 13 L BUN 66 H 57 H Creatinine 3.99 H 2.37 H D Glucose 96 92 Calcium 9.2 8.5 L Liver Function 03/15/23 03/16/23 Range/Units 14:55 06:47 Total Bilirubin 0.6 0.5 (0.2-1.0) mg/dl AST 19 19 (13-39) U/L ALT 31 30 (7-52) U/L Alkaline Phosphatase 73 70 (34-104) U/L Albumin 3.8 3.3 L (3.4-5.0) gm/dl Urine 03/16/23 Range/Units 00:11 Urine Color Dark Yellow Urine Appearance Cloudy A (Clear) Urine pH 5.0 (4.5-7.5) Ur Specific [place] 1.016 (1.000-1.030) Urine Protein 1+ H (Negative) Urine Glucose (UA) Negative (Negative) Diagnostic Findings Gallbladder Ultrasound 03/15/23 18:08 Exam(s): US GALLBLADDER EXAM: US Abdomen Limited, Gallbladder CLINICAL HISTORY: Evaluate for cholecystitis. TECHNIQUE: Real-time ultrasound of the right upper quadrant with image documentation. COMPARISON: Unenhanced CT abdomen and pelvis performed earlier the same day. FINDINGS: Liver: The liver is hyperechoic and enlarged, measuring 20 cm in length. The portal vein is pain with flow directed towards the liver. Gallbladder: The gallbladder is distended and is somewhat hydropic in appearance, as noted on the previous CT examination. No cholelithiasis. The gallbladder wall measures 4.5 mm. Questionable trace pericholecystic fluid. The reported sonographic Carrasquillo sign is indeterminant to slightly positive. Common bile duct: The common bile duct measures 4.2 mm. No stones. No dilation. Pancreas: Unremarkable as visualized. Right kidney: The right kidney is unremarkable without hydronephrosis or obstructing nephrolithiasis. IMPRESSION: 1. The gallbladder is distended and is somewhat hydropic in appearance, as noted on the previous CT examination. No cholelithiasis. However, the gallbladder wall is prominent with questionable trace pericholecystic fluid. The reported sonographic Carrasquillo sign is indeterminate to slightly positive. Subtle developing acalculous cholecystitis is difficult to exclude on this examination. Functional radionuclide imaging of the gallbladder may provide additional information and clinically equivocal cases. 2. No biliary dilatation. Electronically signed by: Eric Olvera MD 03/15/23 22:31 PM Renal Ultrasound 03/15/23 18:08 Exam(s): US RENAL EXAM: US Retroperitoneal Limited, Renal CLINICAL HISTORY: Acute renal failure. TECHNIQUE: Real-time limited ultrasound of the retroperitoneum with image documentation. COMPARISON: Unenhanced CT abdomen and pelvis performed earlier the same day. FINDINGS: Right kidney: The right kidney measures 12.5 cm. No stones. No hydronephrosis. Left kidney: The left kidney measures 12.7 cm. No stones. No hydronephrosis. Bladder: Bladder is mild to moderately distended. Bilateral ureteral jets noted. The prostate gland is prominent, although not specifically measured, but demonstrates some impression on the inferior aspect of the bladder. IMPRESSION: The kidneys are unremarkable bilaterally without hydronephrosis or obstructive nephrolithiasis. Electronically signed by: Eric Olvera MD 03/15/23 22:34 PM Medications Administered Current Inpatient Medications Acetaminophen (Acetaminophen 325 Mg Tab) 650 mg PO Q4H PRN PRN Reason: Pain or Fever Stop: 04/14/23 21:50 Al Hydrox/Mg Hydrox/Simethicone (Aluminum/Magnesium Susp 30 Ml Udc) 15 ml PO Q4H PRN PRN Reason: Dyspepsia Stop: 04/14/23 21:50 Baclofen (Baclofen 10 Mg Tab) 10 mg PO TID INGRDI Stop: 04/14/23 21:50 Last Admin: 03/16/23 08:13 Dose: 10 mg Cetirizine HCl (Cetirizine Hcl 10 Mg Tablet) 10 mg PO DAILY INGRID Stop: 04/15/23 08:59 Last Admin: 03/16/23 08:14 Dose: 10 mg Fluticasone Propionate (Fluticasone Propionate Na Spr 16 Gm Btl) 2 sprays NA DAILY INGRID Stop: 04/15/23 08:59 Last Admin: 03/16/23 08:14 Dose: 2 sprays Gabapentin (Gabapentin 100 Mg Cap) 100 mg PO TID [facility] Stop: 04/14/23 21:50 Last Admin: 03/16/23 08:13 Dose: 100 mg Heparin Sodium (Porcine) (Heparin Sod 5,000 Unit/0.5 Ml Vial) 5,000 units SQ Q8 INGRID Stop: 04/14/23 21:59 Last Admin: 03/16/23 06:06 Dose: 5,000 units Sodium Chloride (Nss 1000ml) 1,000 mls @ 100 mls/hr IV .Q10H INGRID Stop: 04/14/23 21:50 Last Admin: 03/16/23 00:40 Dose: 100 mls/hr Magnesium Sulfate/Dextrose (Magnesium Sulfate / D5w) 1 gm in 100 mls @ 50 mls/hr IV Q2H INGRID Stop: 03/16/23 12:14 Last Admin: 03/16/23 08:26 Dose: 50 mls/hr Magnesium Hydroxide (Magnesium Hydroxide Susp 30 Ml Udc) 30 ml PO Q12H PRN PRN Reason: Constipation Stop: 04/14/23 21:50 Ondansetron HCl (Ondansetron Inj 2 Mg/Ml 2 Ml Vial) 4 mg IV Q6H PRN PRN Reason: Nausea Stop: 04/14/23 21:50 Polyethylene Glycol (Polyethylene (Miralax) 17 Gm Pack) 17 gm PO DAILY PRN PRN Reason: Constipation Stop: 04/14/23 21:50 Vitamin D (Cholecalciferol 1,000 Units 25 Mcg Tab) 2,000 units PO DAILY INGRID Stop: 04/15/23 08:59 Last Admin: 03/16/23 08:14 Dose: 2,000 units
[2023-03-16] MEDS ORDERED: POTASSIUM CHLORIDE CRTAB 20 MEQ TABCR PO STA (10:32)
[2023-03-16] MEDS ORDERED: STAT IV STA (10:33)
[2023-03-16 11:08] LABS: Adenovirus F 40/41 PCR Not Detected (NotDetected); Astrovirus PCR Not Detected (NotDetected); Campylobacter PCR Not Detected (NotDetected); Cryptosporidium PCR Not Detected (NotDetected); Cyclospora cayetanensis PCR Not Detected (NotDetected); Entamoeba histolytica PCR Not Detected (NotDetected); Enteroaggregative E.coli(EAEC) Not Detected (NotDetected); Enteropathogenic E.coli (EPEC) Not Detected (NotDetected); Enterotoxigenic E.coli (ETEC) Not Detected (NotDetected); Giardia lamblia PCR Not Detected (NotDetected); Norovirus GI/GII PCR Not Detected (NotDetected); Plesiomonas shigelloides PCR Not Detected (NotDetected); Rotavirus A PCR Not Detected (NotDetected); Salmonella PCR Not Detected (NotDetected); Sapovirus PCR Not Detected (NotDetected); Shiga-like Toxin E.coli (STEC) Not Detected (NotDetected); Shigella/Enteroinvasive E.coli Not Detected (NotDetected); Vibrio cholerae PCR Not Detected (NotDetected); Vibrio species PCR Not Detected (NotDetected); Yersinia enterocolitica PCR Not Detected (NotDetected)
--- NOTE | 2023-03-16 11:27 | Consultation Report ---
NEPHROLOGY CONSULTATION NOTE REASON FOR CONSULTATION: Acute renal failure and electrolyte problems. HISTORY OF PRESENT ILLNESS: The patient is a 68-year-old male who has completely normal creatinine at baseline. He presented to the hospital yesterday with few days of severe diarrhea, weakness. He was found to be severely hypotensive with a blood pressure in the 70s systolic on presentation to the Emergency Department. He was in fact directed by his PCP after his outpatient blood showed acute renal failure. In the Emergency Department, creatinine was 3.99 with a low serum bicarbonate. The patient recently had similar episode of diarrhea with hypotension and acute renal failure. At that time also, he had significant watery diarrhea as much as 10 episodes per day. He was admitted to outside hospital secondary to dehydration and acute renal failure. Even during that admission, his creatinine was as high as 3.5, but by discharge time it was down to 0.8. He was also put on Augmentin for sinusitis by ENT, which he stopped after 2 days because of worsening diarrhea. Since being admitted to [facility] , he has received about 2 liters of fluid and with that blood pressure is now back to normal with a blood pressure of 119/68, creatinine is trending down fairly fast, and is down to 2.37 in about 12 hours' time. He already had a renal ultrasound as well as CT abdomen and pelvis, which did not show any abnormality of the kidneys. The patient does not have diabetes, heart disease, prior kidney disease, childhood kidney disease, or family history of kidney disease. REVIEW OF SYSTEMS: Denies shortness of breath, orthopnea, PND, lower extremity edema. His complaints are nausea, poor appetite, diarrhea, which is the main symptom, and occasional abdominal cramping. No urinary complaints. Twelve systems reviewed and negative. FAMILY HISTORY: Negative for renal disease or dialysis. 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 Occasional alcohol. Never smoked. He is and lives with his spouse. 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 PAST MEDICAL AND SURGICAL HISTORY: Includes hypertension, sinusitis, spinal stenosis, history of colonoscopy, tooth extraction, total knee replacement in 2016. MEDICATIONS: Home medications include amlodipine, aspirin, baclofen, cetirizine, vitamin D, diclofenac 75 mg twice daily, tamsulosin, ondansetron as needed. PHYSICAL EXAMINATION: GENERAL: A middle-aged white male who is awake, alert, oriented x3. He is not in any respiratory distress. He is not in any pain at this time. VITAL SIGNS: Most recent vital signs show a blood pressure of 119/68; however, on admission, he did have very low blood pressure with the first blood pressure recorded as 70/48 in the Emergency Department; 93% on room air now. HEENT: Mucous membranes are moist. NECK: Supple. No jugular venous distention. CHEST: Bilaterally clear to auscultation. CARDIOVASCULAR: S1 and S2, regular. ABDOMEN: Soft, nontender, obese. EXTREMITIES: Show no edema. NEUROLOGIC: Awake, alert, oriented, moving all 4 extremities. Normal speech. LABORATORY AND IMAGING DATA: Renal ultrasound did not show hydronephrosis. CT abdomen and pelvis showed chronic bladder outlet obstruction, but kidneys were unremarkable. Some mention of a prominent gallbladder. Chest x-ray was within normal limits. His baseline creatinine was 0.8 as of recent hospital discharge, on admission was 3.99, this morning it is down to 2.37. Most recent electrolytes show sodium 141, potassium 3.8, chloride 120, bicarbonate 13, calcium 8.5, magnesium 1.6, albumin 3.3, anion gap 8. ASSESSMENT AND PLAN: A 68-year-old male admitted with severe diarrhea causing severe hypotension and dehydration leading to prerenal type acute renal failure. I have been consulted for acute renal failure as well as electrolyte imbalance. 1. Acute renal failure: This is purely prerenal type. It is concerning that this is the second time he has had acute renal failure within a span of a few weeks. Previous admission at outside hospital, he peaked at a creatinine of 3.5, but by discharge was down to 0.8. Exactly same situation has happened this time with admission creatinine of 3.99, but in less than 24-hour time period it has already gone down to 2.37, which is a very encouraging sign. I do not think he has any intrinsic kidney disease and he should expect to have completely normal creatinine within a day or two. Because the acute renal failure is from severe diarrhea which are seeing classic non-anion gap type metabolic acidosis with a normal anion gap, but very low bicarbonate and a high chloride. Given this, I would like to change the fluid a little bit. We will give him half normal saline with 75 mEq of bicarbonate and 20 mEq of KCl. I agree with magnesium replacement. Even though his potassium at this point is normal, it is expected it will drop with the use of bicarbonate drip, so we will give empirically 40 mEq now p.o. Avoid nephrotoxic agents. Avoid hypoxia and hypertension. He is at this point hemodynamically stable. No further workup is needed for the etiology of the acute renal failure. I expect the creatinine to come down to normal within 1-2 days. 2. Severe diarrhea. Gastroenterology has been consulted. We will defer to them. Thank you very much for the consult. Job ID: [id number] ASHLEY
[2023-03-16] MEDS: SODIUM BICARBONATE 8.4% 75 MEQ, POTASSIUM CHLORIDE 20 MEQ in SODIUM CHLORIDE 0.45 % 1,0... IV SCH ×2 (12:03→23:26)
--- NOTE | 2023-03-16 13:16 | Gastrointestinal Consultation ---
Date of Consultation March 16, 2023 Assessment & Plan (1) Diarrhea: Patient is a 68 years old male with urgent and frequent diarrhea symptoms for the last month. Symptoms happen few days after his last colonoscopy. He was admitted with MATEUSZ, metabolic acidosis and electrolyte derangement. CT abd/pelvis wo acute inflammatory/obstructive changes. ? gallbladder prominence but normal LFTs and benign abd exam. Stool studies negative. DDX: collagenous colitis (takes Diclofenac), less likely IBD, IBS. - Check TSH, celiac serologies, ESR, CRP - Schedule EGD and Flex sigmoidscopy w tap water enema prior to procedure tomorrow 03/17 - CL diet today; NPO after midnight - IVF support - Electrolyte correction per primary team - Avoid NSAIDs Supervising Physician Co-Signing Physician Notes Attg add: I interviewed and examined pt, reviewed chart and labs. Pt with severe watery diarrhea, approximately 1 months after a colonoscopy that was as normal. + weight loss. He is a heavy NSAID user. No ARBs. Presentation c/w secretory diarrhea, suspect micro colitis. Plan youngblood-scopes, if negative then hormone w/u, sprue serologies, empiric anti-diarrheals. History of Present Illness Reason for Consultation: Diarrhea Requesting Physician: Dr. Rosa Mcneil Attending Physician: Dr. aSvana Stewart History of Present Illness Patient is a 68 years old male with past medical history of hypertension, sin usitis, lumbar spinal stenosis who presented to the ED yesterday after being referred by his PCP for MATEUSZ evaluation. Patient had a colonoscopy at the end of January and states that he has been having frequent and urgent watery diarrhea more than 10 episodes a day since then. He initially had been hospitalized at [facility] due to dehydration and MATEUSZ. He was treated with IV hydration, magnesium supplementation and renal function improved however after discharge continues to have poor appetite and diarrhea persist. States that he took [id number] antidiarrheal medications without much relief. He did receive Augmentin for sinusitis 1 week ago but stopped after 2 days due to worsening diarrhea. He has also tried probiotics. On evaluation, he was hypotensive initially in the ER however is hemodynamically stable now. Labs showed signs of leukocytosis with WBC of 13, mild anemia, MATEUSZ with creatinine of 3.9. LFTs and lipase are normal. Stool studies are negative for infections. He had imaging studies including renal and gallbladder ultrasound, chest x-ray and CT abdomen and pelvis. These were reviewed. CT abdomen pelvis showed signs of hydropic gallbladder but cholecystitis not excluded. Patient states that prior to his last colonoscopy done by Jeremiah werner he had 1 5 years ago and had complication of post polypectomy bleed. No outside records available to review. Denies ETOH, tobacco, illicit drugs. Takes Diclofenac Allergies Allergy/AdvReac Type Severity Reaction Status Date / Time No Known Allergies Allergy Verified 03/15/23 23:59 Home Medications Medication Instructions Recorded Confirmed Type amlodipine 10 mg tablet 5 mg PO DAILY 03/15/23 03/15/23 History ascorbic acid (vitamin C) 1,000 mg 1,000 mg PO DIRECTED 03/15/23 03/15/23 History capsule aspirin 81 mg tablet,delayed 81 mg PO DAILY 03/15/23 03/15/23 History release (Adult Low Dose Aspirin) baclofen 10 mg tablet 10 mg PO TID 03/15/23 03/15/23 History cetirizine 10 mg capsule (Zyrtec) 10 mg PO DAILY 03/15/23 03/15/23 History cholecalciferol (vitamin D3) 50 50 mcg PO DAILY 03/15/23 03/15/23 History mcg (2,000 unit) tablet (Vitamin D3) cyanocobalamin (vitamin B-12) 2,500 mcg sublingual DAILY 03/15/23 03/15/23 History 2,500 mcg sublingual lozenge diclofenac sodium 75 mg 75 mg PO BID 03/15/23 03/15/23 History tablet,delayed release diphenoxylate-atropine 2.5 2 tab PO TID PRN Diarrhea 03/15/23 03/15/23 History mg-0.025 mg tablet fluticasone propionate 50 2 spray intranasal DAILY 03/15/23 03/15/23 History mcg/actuation nasal spray,suspension gabapentin 100 mg capsule 100 mg PO TID 03/15/23 03/15/23 History glucosamine sulfate 750 mg tablet 750 mg PO DAILY 03/15/23 03/15/23 History (OptiFlex-G) lactobacillus combination no.4 3 0 mmu cells PO DAILY 03/15/23 03/15/23 History billion cell capsule (Probiotic) ondansetron 4 mg disintegrating 4 mg translingual Q8 PRN 03/15/23 03/15/23 History tablet nausea/vomiting tamsulosin 0.4 mg capsule 0.4 mg PO DAILY 03/15/23 03/15/23 History Patient History Medical History (Updated 03/16/23 @ 13:20 by JEF Richard) Diarrhea HTN (hypertension) Sinusitis ENT Dr. 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 Feels Safe at Home: Yes Safety Concerns: Feels Safe At This Time Assistive Devices: None Review of Systems Review of Systems: All systems reviewed & are unremarkable except as noted in HPI & below Physical Exam Constitutional: WD/WN, vitals as above well groomed, cooperative and comfortable Eyes: PERRL, conjunctivae normal, anicteric sclerae ENMT: external ear and nose normal, oropharynx normal Respiratory: normal respiratory effort, lungs clear to auscultation Cardiovascular: RRR, no murmur, no edema Gastrointestinal (Abdomen): normal bowel sounds, soft, nontender, no hepatosplenomegaly Skin: no rashes, warm and dry no jaundice Psychiatric: A+Ox3, euthymic affect Lymphatic: no lymphedema Results & Data Vital Signs (Past 12 Hours) Vital Signs Temp Pulse Pulse Resp BP BP Pulse Ox 03/16/23 10:53 36.6 C 78 14 107/67 95 03/16/23 06:12 77 03/16/23 07:33 36.7 C 85 16 93 03/16/23 03:03 36.5 C 72 18 119/68 95 O2 Del Method 03/16/23 10:53 Room Air 03/16/23 06:12 03/16/23 07:33 Room Air 03/16/23 03:03 Room Air
[2023-03-17] MEDS: HEPARIN SOD 5,000 UNIT/0.5 ML VIAL SQ SCH ×3 (06:19→22:34)
[2023-03-17 07:43] LABS: Hematocrit (blood only) 38.3 % (42.0-52.0); Hemoglobin 13.1 g/dl (14.0-18.0); Mean Corpuscular Hemoglobin 32.5 pg (25.0-34.0); Mean Corpuscular Hgb Conc 34.2 g/dL (32.0-36.0); Mean Platelet Volume 10.1 fL (9.4-12.4); Platelet Count 281 K/uL (130-400); RDW Coefficient of Variation 13.6 % (11.5-14.5); RDW Standard Deviation 47.8 fL (36.4-46.3); Red Blood Count 4.03 M/uL (4.70-6.10); White Blood Count 11.97 K/ul (4.8-10.8)
--- NOTE | 2023-03-17 08:03 | Anesthesiology Consultation ---
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 initiated Consults Requested none History Surgery Operation Date: 03/17/23 17:30 Proposed Procedures p Flexible Sigmoidoscopy Dr Pat Stewart MD s Esophagogastroduodenoscopy Dr Erin Stewart MD Height/Weight Height: 6 ft 1 in Weight: 108 kg Allergies Allergy/AdvReac Type Severity Reaction Status Date / Time No Known Allergies Allergy Verified 03/15/23 23:59 Medications Home Medications Medication Instructions Recorded Confirmed Last Taken amlodipine 10 mg tablet 5 mg PO DAILY 03/15/23 03/15/23 Unknown ascorbic acid (vitamin C) 1,000 mg 1,000 mg PO DIRECTED 03/15/23 03/15/23 Unknown capsule aspirin 81 mg tablet,delayed 81 mg PO DAILY 03/15/23 03/15/23 Unknown release (Adult Low Dose Aspirin) baclofen 10 mg tablet 10 mg PO TID 03/15/23 03/15/23 Unknown cetirizine 10 mg capsule (Zyrtec) 10 mg PO DAILY 03/15/23 03/15/23 Unknown cholecalciferol (vitamin D3) 50 50 mcg PO DAILY 03/15/23 03/15/23 Unknown mcg (2,000 unit) tablet (Vitamin D3) cyanocobalamin (vitamin B-12) 2,500 mcg sublingual DAILY 03/15/23 03/15/23 Unknown 2,500 mcg sublingual lozenge diclofenac sodium 75 mg 75 mg PO BID 03/15/23 03/15/23 Unknown tablet,delayed release diphenoxylate-atropine 2.5 2 tab PO TID PRN Diarrhea 03/15/23 03/15/23 Unknown mg-0.025 mg tablet fluticasone propionate 50 2 spray intranasal DAILY 03/15/23 03/15/23 Unknown mcg/actuation nasal spray,suspension gabapentin 100 mg capsule 100 mg PO TID 03/15/23 03/15/23 Unknown glucosamine sulfate 750 mg tablet 750 mg PO DAILY 03/15/23 03/15/23 Unknown (OptiFlex-G) lactobacillus combination no.4 3 0 mmu cells PO DAILY 03/15/23 03/15/23 Unknown billion cell capsule (Probiotic) ondansetron 4 mg disintegrating 4 mg translingual Q8 PRN 03/15/23 03/15/23 Unknown tablet nausea/vomiting tamsulosin 0.4 mg capsule 0.4 mg PO DAILY 03/15/23 03/15/23 Unknown Active Medications Generic Name Dose Route Start Last Admin Trade Name Freq PRN Reason Stop Dose Admin Baclofen 10 mg 03/15/23 21:51 03/16/23 20:24 Baclofen 10 Mg Tab PO 04/14/23 21:50 10 mg TID INGRID Administration Cetirizine HCl 10 mg 03/16/23 09:00 03/16/23 08:14 Cetirizine Hcl 10 Mg Tablet PO 04/15/23 08:59 10 mg DAILY INGRID Administration Fluticasone Propionate 2 sprays 03/16/23 09:00 03/16/23 08:14 Fluticasone Propionate Na Spr 16 Gm Btl NA 04/15/23 08:59 2 sprays DAILY INGRID Administration Gabapentin 100 mg 03/15/23 21:51 03/16/23 20:24 Gabapentin 100 Mg Cap PO 04/14/23 21:50 100 mg TID INGRID Administration Heparin Sodium (Porcine) 5,000 units 03/15/23 22:00 03/17/23 06:19 Heparin Sod 5,000 Unit/0.5 Ml Vial SQ 04/14/23 21:59 5,000 units Q8 INGRID Administration Sodium Bicarbonate 75 meq/ 1,085 mls @ 100 mls/hr 03/16/23 10:45 03/16/23 23:26 Potassium Chloride 20 meq/ IV 04/15/23 10:44 100 mls/hr Sodium Chloride .[id number] INGRID Administration Vitamin D 2,000 units 03/16/23 09:00 03/16/23 08:14 Cholecalciferol 1,000 Units 25 Mcg Tab PO 04/15/23 08:59 2,000 units DAILY INGRID Administration Past Medical History Medical History (Updated 03/17/23 @ 08:05 by Bimal Carroll MD) Diarrhea Encounter for pre-operative examination HTN (hypertension) Sinusitis ENT Dr. Browning Spinal stenosis Past Family History Family History Mother Stroke Father Colorectal cancer Past Surgical History Surgical History Hx of colonoscopy Hx of tooth extraction Hx of total knee replacement left 2016 Social History Smoking Status: Never smoker Hx Alcohol Use: Yes Alcohol type: beer alcohol intake frequency: 0-2 drinks per day Hx Substance Use: No Physical Exam Vital Signs Last Vital Signs Temp 36.6 C 03/17/23 08:01 Pulse 93 H 03/17/23 08:01 Resp 14 03/17/23 08:01 BP 136/74 03/17/23 08:01 Pulse Ox 95 03/17/23 08:01 O2 Del Method Room Air 03/17/23 08:01 Testing Laboratory Results 03/17/23 07:10 Urine Color Dark Yellow 03/16/23 00:11 Urine Appearance Cloudy (Clear) A 03/16/23 00:11 Urine pH 5.0 (4.5-7.5) 03/16/23 00:11 Ur Specific [place] 1.016 (1.000-1.030) 03/16/23 00:11 Urine Protein 1+ (Negative) H 03/16/23 00:11 Urine Glucose (UA) Negative (Negative) 03/16/23 00:11 Urine Ketones Trace (Negative) H 03/16/23 00:11 Urine Nitrite Negative (Negative) 03/16/23 00:11 Ur Leukocyte Esterase Negative (Negative) 03/16/23 00:11 Urine WBC (Auto) 10-30 /hpf (0-5) H 03/16/23 00:11 Urine RBC (Auto) 10-30 /hpf (0-4) H 03/16/23 00:11 U Hyaline Cast (Auto) 10-30 /lpf (0-5) H 03/16/23 00:11 U Epithel Cells (Auto) >30 /lpf (0-5) H 03/16/23 00:11 Urine Bacteria (Auto) Negative (Negative) 03/16/23 00:11 03/15/23 17:00 Aerobic Blood Culture - Preliminary Blood No growth in Aerobic bottle after 24 hours. Anaerobic Blood Culture - Final 03/15/23 17:18 Aerobic Blood Culture - Preliminary Blood No growth in Aerobic bottle after 24 hours. Anaerobic Blood Culture - Preliminary No growth in Anaerobic bottle after 24 hours. Electrocardiogram Date: 03/15/23 Test Reason : Blood Pressure : / mmHG Vent. Rate : 062 BPM Atrial Rate : 062 BPM P-R Int : 338 ms QRS Dur : 096 ms QT Int : 386 ms P-R-T Axes : 016 005 016 degrees QTc Int : 391 ms Sinus rhythm with sinus arrhythmia with 1st degree A-V block Otherwise normal ECG No previous ECGs available Confirmed by Marc Sevilla ([id number]) on 03/15/2023 3:52:35 PM Chest X-Ray Date: 03/15/23 XR chest 1V portable CLINICAL HISTORY: abd pain TECHNIQUE: Single frontal radiograph of the chest was obtained. Comparison: None available at the time of this dictation. FINDINGS: No lines and tubes are seen. The cardiomediastinal silhouette is normal. The lungs are clear. No evidence of pleural effusion or pneumothorax. IMPRESSION: No acute chest disease.
[2023-03-17 09:03] LABS: BUN Creatinine Ratio 32.4 (10-20); Calcium 8.8 mg/dl (8.6-10.3); Creatinine Clr Calc Pharmacy 66.5 ml/min; Est GFR (African American) 60.4 ml/min; Est GFR (Non-African American) 52.1 ml/min; Phosphorus 2.4 mg/dl (2.5-4.9); Potassium 3.7 mmol/L (3.5-5.1)
--- NOTE | 2023-03-17 09:20 | Nephrology Progress Note ---
Date of Service March 17, 2023 Assessment & Plan Admission and Anticipated Discharge Date Admission Date: March 15, 2023 Subjective S--Some diarrhea. Vital signs are good. labs gettting better fast. PHYSICAL EXAMINATION: GENERAL: A middle-aged white male who is awake, alert, oriented x3. He is not in any respiratory distress. He is not in any pain at this time. VITAL SIGNS: Most recent vital signs show a blood pressure of 119/68; however, on admission, he did have very low blood pressure with the first blood pressure recorded as 70/48 in the Emergency Department; 93% on room air now. HEENT: Mucous membranes are moist. NECK: Supple. No jugular venous distention. CHEST: Bilaterally clear to auscultation. CARDIOVASCULAR: S1 and S2, regular. ABDOMEN: Soft, nontender, obese. EXTREMITIES: Show no edema. NEUROLOGIC: Awake, alert, oriented, moving all 4 extremities. Normal speech. LABORATORY AND IMAGING DATA: Renal ultrasound did not show hydronephrosis. CT abdomen and pelvis showed chronic bladder outlet obstruction, but kidneys were unremarkable. Some mention of a prominent gallbladder. Chest x-ray was within normal limits. His baseline creatinine was 0.8 as of recent hospital discharge, on admission was 3.99, this morning it is down to 2.37. Most recent electrolytes show sodium 141, potassium 3.8, chloride 120, bicarbonate 13, calcium 8.5, magnesium 1.6, albumin 3.3, anion gap 8. ASSESSMENT AND PLAN: A 68-year-old male admitted with severe diarrhea causing severe hypotension and dehydration leading to prerenal type acute renal failure. I have been consulted for acute renal failure as well as electrolyte imbalance. 1. Acute renal failure: This is purely prerenal type--worsened by Ongoing NSAID use ( it appears he takes Diclofenac daily) . It is concerning that this is the second time he has had acute renal failure within a span of a few weeks. Previous admission at outside hospital, he peaked at a creatinine of 3.5, but by discharge was down to 0.8. Exactly same situation has happened this time with admission creatinine of 3.99, but in less than 24-hour time period it has already gone down to 2.37, which is a very encouraging sign. I do not think he has any intrinsic kidney disease and he should expect to have completely normal creatinine within a day or two. Because the acute renal failure is from severe diarrhea which are seeing classic non-anion gap type metabolic acidosis with a normal anion gap, but very low bicarbonate and a high chloride. 2. Severe diarrhea. Gastroenterology has been consulted. We will defer to them. getting EGD and Colonoscopy . Rec: 1 bicarb still low so can continue current iv fluid with 1/2 ns and 75 meq bicarb and 20 kcl at current rate 2 daily labs. 3 make sure no Daily NSAIDS after discharge. Results & Data Vital Signs (Past 12 Hours) Vital Signs Temp Pulse Pulse Pulse Resp BP BP 03/17/23 08:00 54 L 03/17/23 08:01 36.6 C 93 H 14 136/74 03/17/23 03:00 36.6 C 67 18 114/71 03/17/23 00:02 64 03/16/23 22:00 36.8 C 70 20 116/67 Pulse Ox O2 Del Method 03/17/23 08:00 03/17/23 08:01 95 Room Air 03/17/23 03:00 93 Room Air 03/17/23 00:02 03/16/23 22:00 93 Room Air
[2023-03-17] MEDS: CHOLECALCIFEROL 1,000 UNITS 25 MCG TAB PO SCH (09:55)
[2023-03-17] MEDS: BACLOFEN 10 MG TAB PO SCH ×3 (09:55→21:27)
[2023-03-17] MEDS: GABAPENTIN 100 MG CAP PO SCH ×3 (09:55→21:27)
[2023-03-17] MEDS: CETIRIZINE HCL 10 MG TABLET PO SCH (09:55)
[2023-03-17] MEDS: FLUTICASONE PROPIONATE NA SPR 16 GM BTL SCH (10:54)
--- NOTE | 2023-03-17 12:20 | Gastroenterology Progress Note ---
Date of Service March 17, 2023 Assessment & Plan (1) Diarrhea: Plan: Patient is a 68 years old male with urgent and frequent diarrhea symptoms for the last month. Symptoms happen few days after his last colonoscopy. He was admitted with MATEUSZ, metabolic acidosis and electrolyte derangement. CT abd/pelvis wo acute inflammatory/obstructive changes. ? gallbladder prominence but normal LFTs and benign abd exam. Stool studies negative. DDX: collagenous colitis (sis es Diclofenac), less likely IBD, IBS. - F/U TSH, celiac serologies, ESR, CRP - EGD and Flex sigmoidscopy w tap water enema prior to procedure today - IVF support - Electrolyte correction per primary team - Avoid NSAIDs Admission and Anticipated Discharge Date Admission Date: March 15, 2023 Supervising Physician Co-Signing Physician Notes Attg add: Plan procedures today, pt with continued diarrhea overnight. Subjective Patient reports total of 9 bowel movements yesterday, including 5 overnight. Denies any abdominal pain, nausea or vomiting, rectal bleeding. Review of Systems Review of Systems: All systems reviewed & are unremarkable except as noted in HPI & below Physical Exam Constitutional: WD/WN, vitals as above well groomed, cooperative and comfortable Eyes: PERRL, conjunctivae normal, anicteric sclerae ENMT: external ear and nose normal, oropharynx normal Respiratory: normal respiratory effort, lungs clear to auscultation Cardiovascular: RRR, no murmur, no edema Gastrointestinal (Abdomen): normal bowel sounds, soft, nontender, no hepatosplenomegaly Skin: no rashes, warm and dry no jaundice Psychiatric: A+Ox3, euthymic affect Lymphatic: no lymphedema Results & Data Vital Signs (Past 12 Hours) Vital Signs Temp Pulse Pulse Pulse Resp BP BP 03/17/23 12:00 36.2 C L 64 18 117/76 03/17/23 08:00 54 L 03/17/23 08:01 36.6 C 93 H 14 136/74 03/17/23 03:00 36.6 C 67 18 114/71 Pulse Ox O2 Del Method 03/17/23 12:00 96 Room Air 03/17/23 08:00 03/17/23 08:01 95 Room Air 03/17/23 03:00 93 Room Air
--- NOTE | 2023-03-17 13:01 | History & Physical Report ---
Date of Service March 17, 2023 Assessment & Plan Admission and Anticipated Discharge Date Admission Date: March 15, 2023 History of Present Illness Primary Care Provider: Rena Tran Diarrhea CV: RRR Resp: CTA Abd: soft A/p: EGD and cscopy Allergies Allergy/AdvReac Type Severity Reaction Status Date / Time No Known Allergies Allergy Verified 03/17/23 11:58 Home Medications Medication Instructions Recorded Confirmed Type amlodipine 10 mg tablet 5 mg PO DAILY 03/15/23 03/15/23 History ascorbic acid (vitamin C) 1,000 mg 1,000 mg PO DIRECTED 03/15/23 03/15/23 History capsule aspirin 81 mg tablet,delayed 81 mg PO DAILY 03/15/23 03/17/23 History release (Adult Low Dose Aspirin) baclofen 10 mg tablet 10 mg PO TID 03/15/23 03/15/23 History cetirizine 10 mg capsule (Zyrtec) 10 mg PO DAILY 03/15/23 03/15/23 History cholecalciferol (vitamin D3) 50 50 mcg PO DAILY 03/15/23 03/15/23 History mcg (2,000 unit) tablet (Vitamin D3) cyanocobalamin (vitamin B-12) 2,500 mcg sublingual DAILY 03/15/23 03/15/23 History 2,500 mcg sublingual lozenge diclofenac sodium 75 mg 75 mg PO BID 03/15/23 03/15/23 History tablet,delayed release diphenoxylate-atropine 2.5 2 tab PO TID PRN Diarrhea 03/15/23 03/15/23 History mg-0.025 mg tablet fluticasone propionate 50 2 spray intranasal DAILY 03/15/23 03/15/23 History mcg/actuation nasal spray,suspension gabapentin 100 mg capsule 100 mg PO TID 03/15/23 03/15/23 History glucosamine sulfate 750 mg tablet 750 mg PO DAILY 03/15/23 03/15/23 History (OptiFlex-G) lactobacillus combination no.4 3 0 mmu cells PO DAILY 03/15/23 03/15/23 History billion cell capsule (Probiotic) ondansetron 4 mg disintegrating 4 mg translingual Q8 PRN 03/15/23 03/15/23 History tablet nausea/vomiting tamsulosin 0.4 mg capsule 0.4 mg PO DAILY 03/15/23 03/15/23 History Past Med/Surg History Medical History (Updated 03/17/23 @ 08:05 by Bimal Carroll MD) Diarrhea Encounter for pre-operative examination HTN (hypertension) Sinusitis ENT Dr. 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
[2023-03-17] MEDS ORDERED: PROPOFOL IV EMULSION 10 MG/ML 20 ML VIAL IV ONE (14:14)
[2023-03-17] MEDS ORDERED: ePHEDrine sulfate 50 MG/ML SYR ONE (14:14)
[2023-03-17] MEDS ORDERED: LIDOCAINE 2% MPF LOCAL 5 ML VIAL ONE (14:14)
--- NOTE | 2023-03-17 14:50 | GI REPORT ---
Patient Name: José Luis Geronimo Procedure Date: 03/17/2023 1:49 PM Date of : 1955 Admit Type: Inpatient Age: 68 Gender: Male Attending MD: Savana Stewart MD, Procedure: Upper GI endoscopy/ small bowel enteroscopy Providers: Savana Stewart MD Referring MD: Toby Cochran Md Indications: Diarrhea Medicines: See the Anesthesia note for documentation of the administered medications Complications: No immediate complications. Estimated Blood Loss: Estimated blood loss: none. Procedure: Pre-Anesthesia Assessment: - ASA Grade Assessment: III - A patient with severe systemic disease. After obtaining informed consent, the endoscope was passed under direct vision. Throughout the procedure, the patient's blood pressure, pulse, and oxygen saturations were monitored continuously. The scope was introduced through the mouth, and advanced to the jejunum. The upper GI endoscopy was accomplished without difficulty. The patient tolerated the procedure well. 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 The esophagus was otherwise normal. The stomach was normal. Random biopsies done from stomach. There was moderate fissuring of the mucosa of the duodenal bulb and D2. There was mild villous atrophy of D2. There was mild fissuring of the duodenum in D3 and in the jejunum. Random biopsies done throughout the small intestine. Impression: - No specimens collected. Recommendation: - Discharge patient to floor. See colonoscopy report for details. Regulo Rosas MD 03/17/2023 2:49:54 PM This report has been signed electronically. Note Initiated On: 03/17/2023 1:49 PM Number of Addenda: 0 I attest to the content of the Intraoperative Record and orders documented therein, exceptions below {[id number]}
--- NOTE | 2023-03-17 14:54 | GI REPORT ---
Patient Name: José Luis Geronimo Procedure Date: 03/17/2023 1:47 PM Date of : 1955 Admit Type: Inpatient Age: 68 Gender: Male Attending MD: Savana Stewart MD, Procedure: Flexible Sigmoidoscopy Providers: Savana Stewart MD Referring MD: Toby Cochran Md Indications: Chronic diarrhea Medicines: See the Anesthesia note for documentation of the administered medications Complications: No immediate complications. Procedure: Pre-Anesthesia Assessment: - ASA Grade Assessment: III - A patient with severe systemic disease. After obtaining informed consent, the endoscope was passed under direct vision. Throughout the procedure, the patient's blood pressure, pulse, and oxygen saturations were monitored continuously. The scope was introduced through the anus and advanced to the terminal ileum. After obtaining informed consent, the endoscope was passed under direct vision. Throughout the procedure, the patient's blood pressure, pulse, and oxygen saturations were monitored continuously.The colonoscopy was performed without difficulty. The patient tolerated the procedure well. The quality of the bowel preparation was adequate to examine for colitis, but not for polyp surveillance. Findings: The perianal and digital rectal examinations were normal. Multiple small and large-mouthed diverticula were found in the entire colon. Hemorrhoids on retroflexion. The entire colon was otherwise grossly normal. Random biopsies done. The ileum was normal. Random biopsies done. Recommendation: - Discharge patient to floor. Follow up sprue and CVID serologies. Cholestyramine 4 BID. SBFT. Diet as tolerated. Electrolyte and volume replacement per primary service. Consider LR for volume replacement non -gap acidosis. Savana Stewart M.D. Savana Stewart MD 03/17/2023 2:53:49 PM This report has been signed electronically. Note Initiated On: 03/17/2023 1:47 PM Number of Addenda: 0 I attest to the content of the Intraoperative Record and orders documented therein, exceptions below {[id number]}
--- NOTE | 2023-03-17 15:10 | Anesthesiology Progress Note ---
Date of Service March 17, 2023 Anesthesia Post Procedure Vital Signs Vital Signs: Temp Pulse Pulse Pulse Resp BP BP 03/17/23 14:46 66 16 119/72 03/17/23 14:31 60 16 118/66 03/17/23 14:16 64 16 95/41 L 03/17/23 12:00 36.2 C L 64 18 117/76 03/17/23 08:00 54 L 03/17/23 08:01 36.6 C 93 H 14 136/74 03/17/23 03:00 36.6 C 67 18 114/71 03/17/23 00:02 64 03/16/23 22:00 36.8 C 70 20 116/67 03/16/23 19:00 36.6 C 73 18 118/72 03/16/23 16:36 71 Pulse Ox O2 Del Method 03/17/23 14:46 98 Room Air 03/17/23 14:31 96 Room Air 03/17/23 14:16 99 Room Air 03/17/23 12:00 96 Room Air 03/17/23 08:00 03/17/23 08:01 95 Room Air 03/17/23 03:00 93 Room Air 03/17/23 00:02 03/16/23 22:00 93 Room Air 03/16/23 19:00 94 Room Air 03/16/23 16:36 Transfer of Care Handoff Completed per policy Notes Mental Status: alert / awake / arousable and participated in evaluation Patient Amnestic to Procedure: Yes Nausea / Vomiting: adequately controlled Pain: adequately controlled Airway Patency, RR, SpO2: stable & adequate BP & HR: stable & adequate Hydration State: stable & adequate Anesthetic Complications: no major complications apparent
[2023-03-17] MEDS: SODIUM BICARBONATE 8.4% 75 MEQ, POTASSIUM CHLORIDE 20 MEQ in SODIUM CHLORIDE 0.45 % 1,0... IV SCH (15:40)
[2023-03-17 16:05] LABS: Immunoglobulin G 662.7 mg/dl (635-1741); Immunoglobulin M 25.8 mg/dl (45-281)
--- NOTE | 2023-03-17 16:25 | Hospitalist Progress Note ---
Date of Service March 17, 2023 Assessment & Plan (1) Acute renal failure: (2) Acute hypotension: (3) Metabolic acidosis, NAG, bicarbonate losses: (4) Diarrhea: Plan: Patient is a 68-year-old male who presented to the ED with MATEUSZ. Patient was recently hospitalized in OSH with diarrhea which led to prerenal MATEUSZ. He was admitted in [facility], [place] from 03/05 to 03/06. On presentation to the ED, patient was found to have severe MATEUSZ, hypertension and non-anion gap metabolic acidosis. Chronic diarrhea Acute renal failure Hypovolemic shock secondary to diarrhea Non-anion gap metabolic acidosis Presented with diarrhea for 4 weeks. Watery diarrhea. Presented with acute kidney injury, anion gap metabolic acidosis. Creatinine down trended from 4-1.39. Bicarb still 14 due to diarrhea. Discussed with GI; patient underwent sigmoidoscopy and endoscopy on 03/17. Recommended to continue diet as tolerated. Small bowel follow-through. Discussed with nephrology; recommended to continue on IV fluids (combination of half NS plus bicarb) Plan for small bowel follow-through tomorrow Continue monitor for diarrhea Follow-up on biopsy and serological test. DVT prophylaxis heparin Full code Time spent evaluating patient, direct bedside care, chart review, placing orders, interpretation of diagnostic studies, discussion with consultants, patient, and family members, as well as other required patient management activities is 60 minutes Please note the above document was generated using voice recognition software. It may contain grammatical, syntax or spelling errors. Any formal questions or concerns about the content, text or information contained within the body of this dictation should be directly addressed to the provider for clarification Admission and Anticipated Discharge Date Admission Date: March 15, 2023 Subjective Patient seen and examined at bedside. Is comfortably lying in the bed; not in distress. Reports that he continues to have multiple bowel movements overnight. No abdominal pain or discomfort. Review of Systems Review of Systems: All systems reviewed & are unremarkable except as noted in Subjective Physical Exam Physical Exam: CONSTITUTIONAL: WNWD, vitals as above, generally well-appearing, NAD EYES: normal conjunctivae, no scleral icterus ENT: external ear and nose normal, MMM NECK: trachea midline RESPIRATORY: clear to auscultation bilaterally, no crackles, rales or wheezes, normal respiratory effort CARDIOVASCULAR: regular rate and rhythm, S1 and 2 heard without murmurs, gallops or rubs, no JVD, no peripheral edema CHEST: inspection of chest was normal GASTROINTESTINAL: soft, nontender, ND, no guarding MUSCULOSKELETAL: strength 5/5 throughout, head is normocephalic and atraumatic SKIN: warm and dry NEUROLOGIC: CN 2-12 grossly intact, no sensory deficit, normal cognition, normal speech, no tremor PSYCHIATRIC: alert cooperative and oriented to person, place and time. Euthymi c mood, makes good eye contact, language grossly intact, recent and remote memory grossly intact. Results & Data Results & Data Vital Signs (Past 12 Hours) Vital Signs Temp Pulse Pulse Pulse Resp BP BP 03/17/23 15:40 36.6 C 73 18 128/76 03/17/23 14:46 66 16 119/72 03/17/23 14:31 60 16 118/66 03/17/23 14:16 64 16 95/41 L 03/17/23 12:00 36.2 C L 64 18 117/76 03/17/23 08:00 54 L 03/17/23 08:01 36.6 C 93 H 14 136/74 Pulse Ox O2 Del Method 03/17/23 15:40 94 Room Air 03/17/23 14:46 98 Room Air 03/17/23 14:31 96 Room Air 03/17/23 14:16 99 Room Air 03/17/23 12:00 96 Room Air 03/17/23 08:00 03/17/23 08:01 95 Room Air Laboratory Results Laboratory Results WBC 11.97 K/ul (4.8-10.8) H 03/17/23 07:10 RBC 4.03 M/uL (4.70-6.10) L 03/17/23 07:10 Hgb 13.1 g/dl (14.0-18.0) L 03/17/23 07:10 POC Hgb 16.7 g/dl (14.0-18.0) 03/15/23 15:06 Hct 38.3 % (42.0-52.0) L 03/17/23 07:10 POC Hct 49 % (42-52) 03/15/23 15:06 MCV 95.0 fL (80.0-100.0) 03/17/23 07:10 MCH 32.5 pg (25.0-34.0) 03/17/23 07:10 MCHC 34.2 g/dL (32.0-36.0) 03/17/23 07:10 RDW Std Deviation 47.8 fL (36.4-46.3) H 03/17/23 07:10 RDW Coeff of Radha 13.6 % (11.5-14.5) 03/17/23 07:10 Plt Count 281 K/uL (130-400) 03/17/23 07:10 MPV 10.1 fL (9.4-12.4) 03/17/23 07:10 Immature Gran % (Auto) 0.5 % 03/16/23 06:47 Neut % (Auto) 79.2 % 03/16/23 06:47 Lymph % (Auto) 7.6 % 03/16/23 06:47 Beckham % (Auto) 11.8 % 03/16/23 06:47 Eos % (Auto) 0.7 % 03/16/23 06:47 Baso % (Auto) 0.2 % 03/16/23 06:47 Neut # (Auto) 10.32 K/uL (1.40-6.50) H 03/16/23 06:47 Lymph # (Auto) 0.99 K/uL (1.2-3.4) L 03/16/23 06:47 Beckham # (Auto) 1.54 K/uL (0.11-0.59) H 03/16/23 06:47 Eos # (Auto) 0.09 K/uL (0-0.50) 03/16/23 06:47 Baso # (Auto) 0.02 K/uL (0-0.2) 03/16/23 06:47 Immature Gran # (Auto) 0.07 K/uL (0.01-0.20) 03/16/23 06:47 ESR 25 mm/hr (0-20) H 03/16/23 14:34 POC Sodium 139 mmol/L (135-144) 03/15/23 15:06 Sodium 140 mmol/L (136-145) 03/17/23 07:10 POC Potassium 4.0 mmol/L (3.3-5.0) 03/15/23 15:06 Potassium 3.7 mmol/L (3.5-5.1) 03/17/23 07:10 POC Chloride 116 mmol/L (101-112) H 03/15/23 15:06 Chloride 117 mmol/L (98-107) H 03/17/23 07:10 Carbon Dioxide 14 mmol/L (21-32) L 03/17/23 07:10 POC Total CO2 13 mmol/L (24-31) L 03/15/23 15:06 Anion Gap 9 (3-11) 03/17/23 07:10 POC Anion Gap 15.0 mmol/L (16-25) L 03/15/23 15:06 POC BUN 58 mg/dl (7-18) H 03/15/23 15:06 BUN 45 mg/dl (6-23) H 03/17/23 07:10 Creatinine 1.39 mg/dl (0.6-1.4) D 03/17/23 07:10 POC Creatinine 4.5 mg/dl (0.6-1.3) H 03/15/23 15:06 Est Cr Clr Drug Dosing 66.5 ml/min 03/17/23 07:10 Est GFR ( Amer) 60.4 ml/min 03/17/23 07:10 Est GFR (Non-Af Amer) 52.1 ml/min 03/17/23 07:10 BUN/Creatinine Ratio 32.4 (10-20) H 03/17/23 07:10 Glucose 77 mg/dl (70-99(Fasting)) 03/17/23 07:10 POC Glucose (other) 101 mg/dl (70-99) H 03/15/23 15:06 Calcium 8.8 mg/dl (8.6-10.3) 03/17/23 07:10 POC Ioniz Calcium Elvia 1.32 mmol/l (1.12-1.32) 03/15/23 15:06 Phosphorus 2.4 mg/dl (2.5-4.9) L 03/17/23 07:10 Magnesium 2.0 mg/dl (1.7-2.4) 03/17/23 07:10 Total Bilirubin 0.5 mg/dl (0.2-1.0) 03/16/23 06:47 AST 19 U/L (13-39) 03/16/23 06:47 ALT 30 U/L (7-52) 03/16/23 06:47 Alkaline Phosphatase 70 U/L (34-104) 03/16/23 06:47 Troponin I High Sens 13.0 pg/ml (0-20) 03/15/23 14:55 C-Reactive Protein 13.27 mg/dl (0-0.5) H 03/16/23 14:34 Total Protein 5.6 gm/dl (6.0-8.3) L 03/16/23 06:47 Albumin 3.3 gm/dl (3.4-5.0) L 03/16/23 06:47 Globulin 2.3 gm/dl (2.5-4.0) L 03/16/23 06:47 Albumin/Globulin Ratio 1.4 (0.9-2) 03/16/23 06:47 Lipase 66 U/L (11-82) 03/15/23 14:55 TSH 0.300 uIu/ml (0.300-4.500) 03/16/23 14:34 Urine Color Dark Yellow 03/16/23 00:11 Urine Appearance Cloudy (Clear) A 03/16/23 00:11 Urine pH 5.0 (4.5-7.5) 03/16/23 00:11 Ur Specific [place] 1.016 (1.000-1.030) 03/16/23 00:11 Urine Protein 1+ (Negative) H 03/16/23 00:11 Urine Glucose (UA) Negative (Negative) 03/16/23 00:11 Urine Ketones Trace (Negative) H 03/16/23 00:11 Urine Blood Negative (Negative) 03/16/23 00:11 Urine Nitrite Negative (Negative) 03/16/23 00:11 Urine Bilirubin Negative (Negative) 03/16/23 00:11 Urine Urobilinogen Negative (Negative) 03/16/23 00:11 Ur Leukocyte Esterase Negative (Negative) 03/16/23 00:11 Urine WBC (Auto) 10-30 /hpf (0-5) H 03/16/23 00:11 Urine RBC (Auto) 10-30 /hpf (0-4) H 03/16/23 00:11 U Hyaline Cast (Auto) 10-30 /lpf (0-5) H 03/16/23 00:11 U Epithel Cells (Auto) >30 /lpf (0-5) H 03/16/23 00:11 Urine Bacteria (Auto) Negative (Negative) 03/16/23 00:11 Granular Casts 5-10 /lpf (0) H 03/16/23 00:11 Urine Osmolality 397 mOsm/kg (500-800) L 03/16/23 00:11 Ur Random Creatinine 120.7 mg/dl 03/16/23 00:11 U Random Total Protein 98.3 mg/dl (0-11.9) H 03/16/23 00:11 Ur Random Sodium 23 mmol/L 03/16/23 00:11 Ur Random Potassium 12.2 mmol/L 03/16/23 00:11 Ur Random Chloride 54 mmol/L 03/16/23 00:11 Protein/Creatinin Ratio 0.8 (0-0.2) H 03/16/23 00:11 POC Stool Occult Blood Cancelled 03/16/23 00:16 Stl C. cayetanensis PCR Not Detected (NotDetected) 03/16/23 06:00 Stool Rotavirus A PCR Not Detected (NotDetected) 03/16/23 06:00 Stl Adenov F 40/41 PCR Not Detected (NotDetected) 03/16/23 06:00 Stool Astrovirus (PCR) Not Detected (NotDetected) 03/16/23 06:00 Stool Campylobacter PCR Not Detected (NotDetected) 03/16/23 06:00 Stl C. diff Tox B Gene Negative Cdiff Gene (Neg) 03/16/23 06:00 Stool Cryptosporidium PCR Not Detected (NotDetected) 03/16/23 06:00 Stl E.coli Shiga Tox PCR Not Detected (NotDetected) 03/16/23 06:00 Stl Enterotoxigenic E PCR Not Detected (NotDetected) 03/16/23 06:00 Stool EPEC (PCR) Not Detected (NotDetected) 03/16/23 06:00 Stool EAEC (PCR) Not Detected (NotDetected) 03/16/23 06:00 Stl E. histolytica PCR Not Detected (NotDetected) 03/16/23 06:00 Stool Giardia Lamblia PCR Not Detected (NotDetected) 03/16/23 06:00 Stool Salmonella PCR Not Detected (NotDetected) 03/16/23 06:00 Stool Sapovirus (PCR) Not Detected (NotDetected) 03/16/23 06:00 Stl P. shigelloides PCR Not Detected (NotDetected) 03/16/23 06:00 Stl Shigella/EIEC PCR Not Detected (NotDetected) 03/16/23 06:00 St Y.enterocolitica PCR Not Detected (NotDetected) 03/16/23 06:00 Stool Vibrio (PCR) Not Detected (NotDetected) 03/16/23 06:00 Stl Vibrio cholerae PCR Not Detected (NotDetected) 03/16/23 06:00 Stl Norovirus GI/GII PCR Not Detected (NotDetected) 03/16/23 06:00 IgG 662.7 mg/dl (635-1741) 03/17/23 15:29 IgA 151.0 mg/dl (70-400) 03/17/23 15:29 IgM 25.8 mg/dl (45-281) L 03/17/23 15:29 SARS-CoV-2, RNA, NAAT NEGATIVE (NEGATIVE) 03/15/23 Unknown Impressions Chest X-Ray 03/15/23 14:30 XR chest 1V portable CLINICAL HISTORY: abd pain TECHNIQUE: Single frontal radiograph of the chest was obtained. Comparison: None available at the time of this dictation. FINDINGS: No lines and tubes are seen. The cardiomediastinal silhouette is normal. The lungs are clear. No evidence of pleural effusion or pneumothorax. IMPRESSION: No acute chest disease. ACT 112: Negative or not required by law. Electronically signed by: Vance Lizraraga M.D. 03/15/2023 3:41 PM Abdomen/Pelvis CT 03/15/23 16:02 CT abd pelvis wo con CLINICAL HISTORY: abdominal pain TECHNIQUE: Helical axial images of the abdomen and pelvis were obtained. Automated dose lowering techniques and/or adjustment according to patient size were utilized for this exam. This exam was performed without intravenous contrast. CT DOSE: 1057.50 mGy.cm COMPARISON: None available at the time of this dictation. FINDINGS: Lower chest: Bibasilar atelectasis versus scarring is seen. Moderate to severe atherosclerotic disease is seen in the coronary arteries. Liver: Unremarkable. No focal lesions are seen. Gallbladder and biliary tree: Prominence of the gallbladder is seen. The gallbladder wall is not well delineated. No pericholecystic fluid is seen. No intra- or extrahepatic biliary ductal dilation. Pancreas: Unremarkable, no focal lesions. Spleen: Unremarkable. Adrenals: Unremarkable. Kidneys and ureters: Unremarkable. Bladder: Diffuse homogeneous wall thickening is seen. Reproductive organs: Prostatomegaly is seen. Bowel: Diverticulosis is seen without evidence of diverticulitis. The appendix is unremarkable. Lymph nodes Retroperitoneal: Unremarkable. Pelvic: Unremarkable. Mesenteric: Unremarkable. Peritoneum: Normal. Vessels: Unremarkable. Abdominal wall: Unremarkable. Bones: Degenerative changes in the visualized spine. IMPRESSION: 1. There is prominence of the gallbladder, the wall is difficult to delineate. Physical exam correlation for acute cholecystitis is recommended in right upper quadrant ultrasound can be performed if desired. 2. No bowel obstruction. Diverticulosis is seen without diverticulitis. 3. Chronic bladder outlet obstruction. ACT 112: Negative or not required by law. Electronically signed by: Vance Lizarraga M.D. 03/15/2023 6:03 PM Gallbladder Ultrasound 03/15/23 18:08 Exam(s): US GALLBLADDER EXAM: US Abdomen Limited, Gallbladder CLINICAL HISTORY: Evaluate for cholecystitis. TECHNIQUE: Real-time ultrasound of the right upper quadrant with image documentation. COMPARISON: Unenhanced CT abdomen and pelvis performed earlier the same day. FINDINGS: Liver: The liver is hyperechoic and enlarged, measuring 20 cm in length. The portal vein is pain with flow directed towards the liver. Gallbladder: The gallbladder is distended and is somewhat hydropic in appearance, as noted on the previous CT examination. No cholelithiasis. The gallbladder wall measures 4.5 mm. Questionable trace pericholecystic fluid. The reported sonographic Carrasquillo sign is indeterminant to slightly positive. Common bile duct: The common bile duct measures 4.2 mm. No stones. No dilation. Pancreas: Unremarkable as visualized. Right kidney: The right kidney is unremarkable without hydronephrosis or obstructing nephrolithiasis. IMPRESSION: 1. The gallbladder is distended and is somewhat hydropic in appearance, as noted on the previous CT examination. No cholelithiasis. However, the gallbladder wall is prominent with questionable trace pericholecystic fluid. The reported sonographic Carrasquillo sign is indeterminate to slightly positive. Subtle developing acalculous cholecystitis is difficult to exclude on this examination. Functional radionuclide imaging of the gallbladder may provide additional information and clinically equivocal cases. 2. No biliary dilatation. Electronically signed by: Eric Olvera MD 03/15/23 22:31 PM Renal Ultrasound 03/15/23 18:08 Exam(s): US RENAL EXAM: US Retroperitoneal Limited, Renal CLINICAL HISTORY: Acute renal failure. TECHNIQUE: Real-time limited ultrasound of the retroperitoneum with image documentation. COMPARISON: Unenhanced CT abdomen and pelvis performed earlier the same day. FINDINGS: Right kidney: The right kidney measures 12.5 cm. No stones. No hydronephrosis. Left kidney: The left kidney measures 12.7 cm. No stones. No hydronephrosis. Bladder: Bladder is mild to moderately distended. Bilateral ureteral jets noted. The prostate gland is prominent, although not specifically measured, but demonstrates some impression on the inferior aspect of the bladder. IMPRESSION: The kidneys are unremarkable bilaterally without hydronephrosis or obstructive nephrolithiasis. Electronically signed by: Eric Olvera MD 03/15/23 22:34 PM
--- NOTE | 2023-03-17 16:49 | Electrocardiogram Report ---
Test Reason : Blood Pressure : / mmHG Vent. Rate : 070 BPM Atrial Rate : 070 BPM P-R Int : 364 ms QRS Dur : 102 ms QT Int : 368 ms P-R-T Axes : 072 -05 025 degrees QTc Int : 397 ms Poor data quality, interpretation may be adversely affected Sinus rhythm with sinus arrhythmia with 1st degree A-V block Poor R wave progression, consider anterior TN vs. lead placement vs. LVH Abnormal ECG When compared with ECG of 15-MAR-2023 14:38, No significant change was found Confirmed by Marc Sevilla ([id number]) on 03/17/2023 4:49:00 PM Referred By: REFERRED SELF Confirmed By:Marc Sevilla
[2023-03-17] MEDS: COLESTIPOL HCL 1 GM TAB PO SCH (22:35)
[2023-03-18] MEDS: SODIUM BICARBONATE 8.4% 75 MEQ, POTASSIUM CHLORIDE 20 MEQ in SODIUM CHLORIDE 0.45 % 1,0... IV SCH ×2 (04:32→05:00)
[2023-03-18] MEDS: HEPARIN SOD 5,000 UNIT/0.5 ML VIAL SQ SCH ×3 (05:00→21:45)
[2023-03-18 06:54] LABS: Basophils # (auto) 0.04 K/uL (0-0.2); Basophils % (auto) 0.3 %; Eosinophils # (auto) 0.21 K/uL (0-0.50); Eosinophils % (auto) 1.8 %; Hematocrit (blood only) 36.1 % (42.0-52.0); Hemoglobin 12.4 g/dl (14.0-18.0); Immature Granulocytes # (auto) 0.04 K/uL (0.01-0.20); Immature Granulocytes % (auto) 0.3 %; Lymphocytes # (auto) 1.66 K/uL (1.2-3.4); Lymphocytes % (auto) 14.1 %; Mean Corpuscular Hemoglobin 32.5 pg (25.0-34.0); Mean Corpuscular Hgb Conc 34.3 g/dL (32.0-36.0); Mean Corpuscular Volume 94.8 fL (80.0-100.0); Mean Platelet Volume 9.9 fL (9.4-12.4); Monocytes # (auto) 1.07 K/uL (0.11-0.59); Monocytes % (auto) 9.1 %; Neutrophils # (auto) 8.73 K/uL (1.40-6.50); Neutrophils % (auto) 74.4 %; Platelet Count 310 K/uL (130-400); RDW Coefficient of Variation 13.7 % (11.5-14.5); RDW Standard Deviation 47.9 fL (36.4-46.3); Red Blood Count 3.81 M/uL (4.70-6.10); White Blood Count 11.75 K/ul (4.8-10.8)
[2023-03-18 07:15] LABS: BUN Creatinine Ratio 27.2 (10-20); Calcium 8.8 mg/dl (8.6-10.3); Creatinine Clr Calc Pharmacy 88.9 ml/min; Est GFR (African American) 86.7 ml/min; Est GFR (Non-African American) 74.8 ml/min; Magnesium 1.8 mg/dl (1.7-2.4); Potassium 3.4 mmol/L (3.5-5.1)
--- NOTE | 2023-03-18 09:37 | Nephrology Progress Note ---
Date of Service March 18, 2023 Assessment & Plan Admission and Anticipated Discharge Date Admission Date: March 15, 2023 Subjective Subjective S--Some diarrhea. Vital signs are good. had GI workup PHYSICAL EXAMINATION: GENERAL: A middle-aged white male who is awake, alert, oriented x3. He is not in any respiratory distress. He is not in any pain at this time. VITAL SIGNS: Most recent vital signs show a blood pressure of 119/68; however, on admission, he did have very low blood pressure with the first blood pressure recorded as 70/48 in the Emergency Department; 93% on room air now. HEENT: Mucous membranes are moist. NECK: Supple. No jugular venous distention. CHEST: Bilaterally clear to auscultation. CARDIOVASCULAR: S1 and S2, regular. ABDOMEN: Soft, nontender, obese. EXTREMITIES: Show no edema. NEUROLOGIC: Awake, alert, oriented, moving all 4 extremities. Normal speech. LABORATORY AND IMAGING DATA: Renal ultrasound did not show hydronephrosis. Creat down to 1 now ASSESSMENT AND PLAN: A 68-year-old male admitted with severe diarrhea causing severe hypotension and dehydration leading to prerenal type acute renal failure. I have been consulted for acute renal failure as well as electrolyte imbalance. 1. Acute renal failure: This is purely prerenal type--worsened by Ongoing NSAID use ( it appears he takes Diclofenac daily) . It is concerning that this is the second time he has had acute renal failure within a span of a few weeks. Previous admission at outside hospital, he peaked at a creatinine of 3.5, but by discharge was down to 0.8. Exactly same situation has happened this time with admission creatinine of 3.99, but in less than 24-hour time period it has already gone down to 2.37, which is a very encouraging sign. I do not think he has any intrinsic kidney disease and he should expect to have completely normal creatinine within a day or two. Because the acute renal failure is from severe diarrhea which are seeing classic non-anion gap type metabolic acidosis with a normal anion gap, but very low bicarbonate and a high chloride. 2. Severe diarrhea. Gastroenterology has been consulted. We will defer to them. had EGD and Colonoscopy . Rec: 1 bicarb still low so can continue current iv fluid with 1/2 ns and 75 meq bicarb and 20 kcl at 80 ml/hr till he is NPO. Then stop 2 daily labs. 3 make sure no Daily NSAIDS after discharge. 4 Will sign off at this time. 5 Does not need Nephrology follow up after discharge Results & Data Vital Signs (Past 12 Hours) Vital Signs Temp Pulse Pulse Resp BP Pulse Ox O2 Del Method 03/18/23 07:58 36.8 C 68 18 119/70 94 Room Air 03/18/23 03:57 36.8 C 69 18 122/74 94 Room Air 03/17/23 22:07 73 03/17/23 22:37 36.5 C 65 18 129/79 94 Room Air
--- NOTE | 2023-03-18 09:43 | Communication Note ---
Date of Service: March 18, 2023 Attempted to evaluate patient x 3. Not available. Will assess on afternoon rounds. 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 The esophagus was otherwise normal. The stomach was normal. Random biopsies done from stomach. There was moderate fissuring of the mucosa of the duodenal bulb and D2. There was mild villous atrophy of D2. There was mild fissuring of the duodenum in D3 and in the jejunum. Random biopsies done throughout the small intestine. Sigmoidoscopy 2022: The perianal and digital rectal examinations were normal. Multiple small and large-mouthed diverticula were found in the entire colon. Hemorrhoids on retroflexion. The entire colon was otherwise grossly normal. Random biopsies done. The ileum was normal. Random biopsies done. 68 years old male with urgent and frequent diarrhea symptoms for the last month, admitted with MATEUSZ, metabolic acidosis and electrolyte derangement. CT abd/pelvis w/o acute inflammatory/obstructive changes. Stool studies negative. Repeat EGD/Colonoscopy concerning for celiac, biopsies and serology pending - Follow up sprue and CVID serologies. - Cholestyramine 4 BID. - SBFT today - Diet as tolerated. - Electrolyte and volume replacement per primary service - Avoid NSAIDs Attg add: I interviewed and examined pt, reviewed chart and labs. Pt with two BM's today. Abd exam unchanged. Labs show inmproved creat, K, persistent NAGMA. I spoke to Dr. Da Silva, who read pathology - showed villous atrophy and increased IELS, patchy colonic inflammation. Stool studies neg, no evidence of CVID, SBFT WNL. I spoke to his , who states that he has been taking an ARB (Benicar) at home, although this is not documented in his chart at all --- this is the likely cause of his diarrhea. A/p: ARB associated diarrhea Anticipate discharge tomorrow, I anticipate that his diarrhea will slowly improve. Can cont cholestyramine 4 BID as outpt, although he may use PRN. F/u celiac serologies. D/c on low fat diet. Minimize NSAID use. Please call with questions, will sign off. Can follow up in GI clinic.
[2023-03-18] MEDS: GABAPENTIN 100 MG CAP PO SCH ×3 (11:29→20:43)
[2023-03-18] MEDS: CHOLECALCIFEROL 1,000 UNITS 25 MCG TAB PO SCH (11:29)
[2023-03-18] MEDS: CETIRIZINE HCL 10 MG TABLET PO SCH (11:29)
[2023-03-18] MEDS: FLUTICASONE PROPIONATE NA SPR 16 GM BTL SCH (11:30)
[2023-03-18] MEDS: COLESTIPOL HCL 1 GM TAB PO SCH (11:30)
[2023-03-18] MEDS: BACLOFEN 10 MG TAB PO SCH (11:35)
--- NOTE | 2023-03-18 11:40 | Fluoroscopy Report ---
UPPER GI SERIES AND SMALL BOWEL FOLLOW-THROUGH CLINICAL HISTORY: Diarrhea. COMPARISON STUDY: CT of the abdomen and pelvis March 15, 2023. FLUOROSCOPY TIME: 1.9 minutes. FLUOROSCOPY IMAGES: 29 Ka,r: 284.23 mGy. TECHNIQUE: Upper GI series was performed followed by a small bowel follow-through. FINDINGS: Comb Fixer KUB demonstrates an unremarkable bowel gas pattern. Esophageal motility was normal. N o esophageal mass or stricture was identified. No hiatal hernia was identified. No reflux was elicite d. Gastric fold pattern was normal. Duodenal fold pattern was normal.] The caliber of the jejunum and ileum are normal. No transition point was identified. No definite mucosal abnormality was identified . Transit time to the cecum was normal at 2 hours and 40 minutes. Terminal ileum was within normal li mits. IMPRESSION: Unremarkable upper GI series and small bowel follow-through. ACT 112: Negative or not required by law. Electronically signed by: Juan M Jaquez M.D. 03/18/2023 11:39 AM
[2023-03-18] MEDS ORDERED: BACLOFEN 10 MG TAB PO PRN (13:17)
--- NOTE | 2023-03-18 13:37 | Hospitalist Progress Note ---
Date of Service March 18, 2023 Assessment & Plan (1) Acute renal failure: (2) Acute hypotension: (3) Metabolic acidosis, NAG, bicarbonate losses: (4) Diarrhea: Plan: Patient is a 68-year-old male who presented to the ED with MATEUSZ. Patient was recently hospitalized in OSH with diarrhea which led to prerenal MATEUSZ. He was admitted in [facility] from 03/05 to 03/06. On presentation to the ED, patient was found to have severe MATEUSZ, hypertension and non-anion gap metabolic acidosis. Chronic diarrhea Acute renal failure Hypovolemic shock secondary to diarrhea Non-anion gap metabolic acidosis Presented with diarrhea for 4 weeks. Watery; no blood or mucus present. Presented with acute kidney injury, anion gap metabolic acidosis. Creatinine down trended with IV hydration. Labs personally reviewed; bicarb still 15 due to ongoing diarrhea. Discussed with GI; patient underwent sigmoidoscopy and endoscopy on 03/17. Recommended to continue diet as tolerated. Work-up so far; CT abdomen and pelvis on 03/15no acute finding. Diverticulosis present. Sigmoidoscopy done on 03/17multiple small and large mouth diverticuli found in entire colon. Hemorrhoids on retroflexion. Biopsies taken. 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 Moderate fissuring of the mucosa of the duodenal bulb and D2. Random biopsies taken throughout the small intestine. Small bowel follow-through done on 03/18normal Thyroid function test within normal limits GI stool PCR on 03/16 negative. C. difficile on 03/16 negative Pending tests celiac disease panel, Giardia antigen, stool cryptosporidium antigen Pathology from biopsy (sigmoidoscopy/endoscopy)-pending Discussed with nephrology; recommended to continue on IV fluids (combination of half NS plus bicarb). Continue monitor for diarrhea Follow-up on biopsy and serological test. Chronic conditions; Hypertensionhold amlodipine given hypotension Lumbar spinal stenosiscontinue on gabapentin and baclofen. DVT prophylaxis heparin Full code Time spent evaluating patient, direct bedside care, chart review, placing orders, interpretation of diagnostic studies, discussion with consultants, patient, and family members, as well as other required patient management activities is 60 minutes Please note the above document was generated using voice recognition software. It may contain grammatical, syntax or spelling errors. Any formal questions or concerns about the content, text or information contained within the body of this dictation should be directly addressed to the provider for clarification Admission and Anticipated Discharge Date Admission Date: March 15, 2023 Subjective Patient seen and examined at bedside. He reports that he had 5 episodes of diarrhea overnight. He denies any abdominal discomfort or cramps. Review of Systems Review of Systems: All systems reviewed & are unremarkable except as noted in Subjective Physical Exam Physical Exam: CONSTITUTIONAL: WNWD, vitals as above, generally well-appearing, NAD EYES: normal conjunctivae, no scleral icterus ENT: external ear and nose normal, MMM NECK: trachea midline RESPIRATORY: clear to auscultation bilaterally, no crackles, rales or wheezes, normal respiratory effort CARDIOVASCULAR: regular rate and rhythm, S1 and 2 heard without murmurs, gallops or rubs, no JVD, no peripheral edema CHEST: inspection of chest was normal GASTROINTESTINAL: soft, nontender, ND, no guarding MUSCULOSKELETAL: strength 5/5 throughout, head is normocephalic and atraumatic SKIN: warm and dry NEUROLOGIC: CN 2-12 grossly intact, no sensory deficit, normal cognition, normal speech, no tremor PSYCHIATRIC: alert cooperative and oriented to person, place and time. Euthymic mood, makes good eye contact, language grossly intact, recent and remote memory grossly intact. Results & Data Results & Data Vital Signs (Past 12 Hours) Vital Signs Temp Pulse Pulse Resp BP Pulse Ox O2 Del Method 03/18/23 11:31 36.6 C 63 18 119/74 94 Room Air 03/18/23 07:30 61 03/18/23 07:58 36.8 C 68 18 119/70 94 Room Air 03/18/23 03:57 36.8 C 69 18 122/74 94 Room Air Laboratory Results Laboratory Results WBC 11.75 K/ul (4.8-10.8) H 03/18/23 06:17 RBC 3.81 M/uL (4.70-6.10) L 03/18/23 06:17 Hgb 12.4 g/dl (14.0-18.0) L 03/18/23 06:17 POC Hgb 16.7 g/dl (14.0-18.0) 03/15/23 15:06 Hct 36.1 % (42.0-52.0) L 03/18/23 06:17 POC Hct 49 % (42-52) 03/15/23 15:06 MCV 94.8 fL (80.0-100.0) 03/18/23 06:17 MCH 32.5 pg (25.0-34.0) 03/18/23 06:17 MCHC 34.3 g/dL (32.0-36.0) 03/18/23 06:17 RDW Std Deviation 47.9 fL (36.4-46.3) H 03/18/23 06:17 RDW Coeff of Radha 13.7 % (11.5-14.5) 03/18/23 06:17 Plt Count 310 K/uL (130-400) 03/18/23 06:17 MPV 9.9 fL (9.4-12.4) 03/18/23 06:17 Immature Gran % (Auto) 0.3 % 03/18/23 06:17 Neut % (Auto) 74.4 % 03/18/23 06:17 Lymph % (Auto) 14.1 % 03/18/23 06:17 [place] % (Auto) 9.1 % 03/18/23 06:17 Eos % (Auto) 1.8 % 03/18/23 06:17 Baso % (Auto) 0.3 % 03/18/23 06:17 Neut # (Auto) 8.73 K/uL (1.40-6.50) H 03/18/23 06:17 Lymph # (Auto) 1.66 K/uL (1.2-3.4) 03/18/23 06:17 [place] # (Auto) 1.07 K/uL (0.11-0.59) H 03/18/23 06:17 Eos # (Auto) 0.21 K/uL (0-0.50) 03/18/23 06:17 Baso # (Auto) 0.04 K/uL (0-0.2) 03/18/23 06:17 Immature Gran # (Auto) 0.04 K/uL (0.01-0.20) 03/18/23 06:17 ESR 25 mm/hr (0-20) H 03/16/23 14:34 POC Sodium 139 mmol/L (135-144) 03/15/23 15:06 Sodium 141 mmol/L (136-145) 03/18/23 06:17 POC Potassium 4.0 mmol/L (3.3-5.0) 03/15/23 15:06 Potassium 3.4 mmol/L (3.5-5.1) L 03/18/23 06:17 POC Chloride 116 mmol/L (101-112) H 03/15/23 15:06 Chloride 117 mmol/L (98-107) H 03/18/23 06:17 Carbon Dioxide 15 mmol/L (21-32) L 03/18/23 06:17 POC Total CO2 13 mmol/L (24-31) L 03/15/23 15:06 Anion Gap 9 (3-11) 03/18/23 06:17 POC Anion Gap 15.0 mmol/L (16-25) L 03/15/23 15:06 POC BUN 58 mg/dl (7-18) H 03/15/23 15:06 BUN 28 mg/dl (6-23) H 03/18/23 06:17 Creatinine 1.03 mg/dl (0.6-1.4) D 03/18/23 06:17 POC Creatinine 4.5 mg/dl (0.6-1.3) H 03/15/23 15:06 Est Cr Clr Drug Dosing 88.9 ml/min 03/18/23 06:17 Est GFR ( Amer) 86.7 ml/min 03/18/23 06:17 Est GFR (Non-Af Amer) 74.8 ml/min 03/18/23 06:17 BUN/Creatinine Ratio 27.2 (10-20) H 03/18/23 06:17 Glucose 86 mg/dl (70-99(Fasting)) 03/18/23 06:17 POC Glucose (other) 101 mg/dl (70-99) H 03/15/23 15:06 Calcium 8.8 mg/dl (8.6-10.3) 03/18/23 06:17 POC Ioniz Calcium Elvia 1.32 mmol/l (1.12-1.32) 03/15/23 15:06 Phosphorus 2.4 mg/dl (2.5-4.9) L 03/17/23 07:10 Magnesium 1.8 mg/dl (1.7-2.4) 03/18/23 06:17 Total Bilirubin 0.5 mg/dl (0.2-1.0) 03/16/23 06:47 AST 19 U/L (13-39) 03/16/23 06:47 ALT 30 U/L (7-52) 03/16/23 06:47 Alkaline Phosphatase 70 U/L (34-104) 03/16/23 06:47 Troponin I High Sens 13.0 pg/ml (0-20) 03/15/23 14:55 C-Reactive Protein 13.27 mg/dl (0-0.5) H 03/16/23 14:34 Total Protein 5.6 gm/dl (6.0-8.3) L 03/16/23 06:47 Albumin 3.3 gm/dl (3.4-5.0) L 03/16/23 06:47 Globulin 2.3 gm/dl (2.5-4.0) L 03/16/23 06:47 Albumin/Globulin Ratio 1.4 (0.9-2) 03/16/23 06:47 Lipase 66 U/L (11-82) 03/15/23 14:55 TSH 0.300 uIu/ml (0.300-4.500) 03/16/23 14:34 Urine Color Dark Yellow 03/16/23 00:11 Urine Appearance Cloudy (Clear) A 03/16/23 00:11 Urine pH 5.0 (4.5-7.5) 03/16/23 00:11 Ur Specific [place] 1.016 (1.000-1.030) 03/16/23 00:11 Urine Protein 1+ (Negative) H 03/16/23 00:11 Urine Glucose (UA) Negative (Negative) 03/16/23 00:11 Urine Ketones Trace (Negative) H 03/16/23 00:11 Urine Blood Negative (Negative) 03/16/23 00:11 Urine Nitrite Negative (Negative) 03/16/23 00:11 Urine Bilirubin Negative (Negative) 03/16/23 00:11 Urine Urobilinogen Negative (Negative) 03/16/23 00:11 Ur Leukocyte Esterase Negative (Negative) 03/16/23 00:11 Urine WBC (Auto) 10-30 /hpf (0-5) H 03/16/23 00:11 Urine RBC (Auto) 10-30 /hpf (0-4) H 03/16/23 00:11 U Hyaline Cast (Auto) 10-30 /lpf (0-5) H 03/16/23 00:11 U Epithel Cells (Auto) >30 /lpf (0-5) H 03/16/23 00:11 Urine Bacteria (Auto) Negative (Negative) 03/16/23 00:11 Granular Casts 5-10 /lpf (0) H 03/16/23 00:11 Urine Osmolality 397 mOsm/kg (500-800) L 03/16/23 00:11 Ur Random Creatinine 120.7 mg/dl 03/16/23 00:11 U Random Total Protein 98.3 mg/dl (0-11.9) H 03/16/23 00:11 Ur Random Sodium 23 mmol/L 03/16/23 00:11 Ur Random Potassium 12.2 mmol/L 03/16/23 00:11 Ur Random Chloride 54 mmol/L 03/16/23 00:11 Protein/Creatinin Ratio 0.8 (0-0.2) H 03/16/23 00:11 POC Stool Occult Blood Cancelled 03/16/23 00:16 Stl C. cayetanensis PCR Not Detected (NotDetected) 03/16/23 06:00 Stool Rotavirus A PCR Not Detected (NotDetected) 03/16/23 06:00 Stl Adenov F 40/41 PCR Not Detected (NotDetected) 03/16/23 06:00 Stool Astrovirus (PCR) Not Detected (NotDetected) 03/16/23 06:00 Stool Campylobacter PCR Not Detected (NotDetected) 03/16/23 06:00 Stl C. diff Tox B Gene Negative Cdiff Gene (Neg) 03/16/23 06:00 Stool Cryptosporidium PCR Not Detected (NotDetected) 03/16/23 06:00 Stl E.coli Shiga Tox PCR Not Detected (NotDetected) 03/16/23 06:00 Stl Enterotoxigenic E PCR Not Detected (NotDetected) 03/16/23 06:00 Stool EPEC (PCR) Not Detected (NotDetected) 03/16/23 06:00 Stool EAEC (PCR) Not Detected (NotDetected) 03/16/23 06:00 Stl E. histolytica PCR Not Detected (NotDetected) 03/16/23 06:00 Stool Giardia Lamblia PCR Not Detected (NotDetected) 03/16/23 06:00 Stool Salmonella PCR Not Detected (NotDetected) 03/16/23 06:00 Stool Sapovirus (PCR) Not Detected (NotDetected) 03/16/23 06:00 Stl P. shigelloides PCR Not Detected (NotDetected) 03/16/23 06:00 Stl Shigella/EIEC PCR Not Detected (NotDetected) 03/16/23 06:00 St Y.enterocolitica PCR Not Detected (NotDetected) 03/16/23 06:00 Stool Vibrio (PCR) Not Detected (NotDetected) 03/16/23 06:00 Stl Vibrio cholerae PCR Not Detected (NotDetected) 03/16/23 06:00 Stl Norovirus GI/GII PCR Not Detected (NotDetected) 03/16/23 06:00 IgG 662.7 mg/dl (635-1741) 03/17/23 15:29 IgA 151.0 mg/dl (70-400) 03/17/23 15:29 IgM 25.8 mg/dl (45-281) L 03/17/23 15:29 SARS-CoV-2, RNA, NAAT NEGATIVE (NEGATIVE) 03/15/23 Unknown Impressions Chest X-Ray 03/15/23 14:30 XR chest 1V portable CLINICAL HISTORY: abd pain TECHNIQUE: Single frontal radiograph of the chest was obtained. Comparison: None available at the time of this dictation. FINDINGS: No lines and tubes are seen. The cardiomediastinal silhouette is normal. The lungs are clear. No evidence of pleural effusion or pneumothorax. IMPRESSION: No acute chest disease. ACT 112: Negative or not required by law. Electronically signed by: Vance Lizarraga M.D. 03/15/2023 3:41 PM Abdomen/Pelvis CT 03/15/23 16:02 CT abd pelvis wo con CLINICAL HISTORY: abdominal pain TECHNIQUE: Helical axial images of the abdomen and pelvis were obtained. Automated dose lowering techniques and/or adjustment according to patient size were utilized for this exam. This exam was performed without intravenous contrast. CT DOSE: 1057.50 mGy.cm COMPARISON: None available at the time of this dictation. FINDINGS: Lower chest: Bibasilar atelectasis versus scarring is seen. Moderate to severe atherosclerotic disease is seen in the coronary arteries. Liver: Unremarkable. No focal lesions are seen. Gallbladder and biliary tree: Prominence of the gallbladder is seen. The gallbladder wall is not well delineated. No pericholecystic fluid is seen. No intra- or extrahepatic biliary ductal dilation. Pancreas: Unremarkable, no focal lesions. Spleen: Unremarkable. Adrenals: Unremarkable. Kidneys and ureters: Unremarkable. Bladder: Diffuse homogeneous wall thickening is seen. Reproductive organs: Prostatomegaly is seen. Bowel: Diverticulosis is seen without evidence of diverticulitis. The appendix is unremarkable. Lymph nodes Retroperitoneal: Unremarkable. Pelvic: Unremarkable. Mesenteric: Unremarkable. Peritoneum: Normal. Vessels: Unremarkable. Abdominal wall: Unremarkable. Bones: Degenerative changes in the visualized spine. IMPRESSION: 1. There is prominence of the gallbladder, the wall is difficult to delineate. Physical exam correlation for acute cholecystitis is recommended in right upper quadrant ultrasound can be performed if desired. 2. No bowel obstruction. Diverticulosis is seen without diverticulitis. 3. Chronic bladder outlet obstruction. ACT 112: Negative or not required by law. Electronically signed by: Vance Lizarraga M.D. 03/15/2023 6:03 PM Gallbladder Ultrasound 03/15/23 18:08 Exam(s): US GALLBLADDER EXAM: US Abdomen Limited, Gallbladder CLINICAL HISTORY: Evaluate for cholecystitis. TECHNIQUE: Real-time ultrasound of the right upper quadrant with image documentation. COMPARISON: Unenhanced CT abdomen and pelvis performed earlier the same day. FINDINGS: Liver: The liver is hyperechoic and enlarged, measuring 20 cm in length. The portal vein is pain with flow directed towards the liver. Gallbladder: The gallbladder is distended and is somewhat hydropic in appearance, as noted on the previous CT examination. No cholelithiasis. The gallbladder wall measures 4.5 mm. Questionable trace pericholecystic fluid. The reported sonographic Carrasquillo sign is indeterminant to slightly positive. Common bile duct: The common bile duct measures 4.2 mm. No stones. No dilation. Pancreas: Unremarkable as visualized. Right kidney: The right kidney is unremarkable without hydronephrosis or obstructing nephrolithiasis. IMPRESSION: 1. The gallbladder is distended and is somewhat hydropic in appearance, as noted on the previous CT examination. No cholelithiasis. However, the gallbladder wall is prominent with questionable trace pericholecystic fluid. The reported sonographic Carrasquillo sign is indeterminate to slightly positive. Subtle developing acalculous cholecystitis is difficult to exclude on this examination. Functional radionuclide imaging of the gallbladder may provide additional information and clinically equivocal cases. 2. No biliary dilatation. Electronically signed by: Eric Olvera MD 03/15/23 22:31 PM Renal Ultrasound 03/15/23 18:08 Exam(s): US RENAL EXAM: US Retroperitoneal Limited, Renal CLINICAL HISTORY: Acute renal failure. TECHNIQUE: Real-time limited ultrasound of the retroperitoneum with image documentation. COMPARISON: Unenhanced CT abdomen and pelvis performed earlier the same day. FINDINGS: Right kidney: The right kidney measures 12.5 cm. No stones. No hydronephrosis. Left kidney: The left kidney measures 12.7 cm. No stones. No hydronephrosis. Bladder: Bladder is mild to moderately distended. Bilateral ureteral jets noted. The prostate gland is prominent, although not specifically measured, but demonstrates some impression on the inferior aspect of the bladder. IMPRESSION: The kidneys are unremarkable bilaterally without hydronephrosis or obstructive nephrolithiasis. Electronically signed by: Eric Olvera MD 03/15/23 22:34 PM Upper GI and Small Bowel X-Ray 03/18/23 08:00 UPPER GI SERIES AND SMALL BOWEL FOLLOW-THROUGH CLINICAL HISTORY: Diarrhea. COMPARISON STUDY: CT of the abdomen and pelvis March 15, 2023. FLUOROSCOPY TIME: 1.9 minutes. FLUOROSCOPY IMAGES: 29 Ka,r: 284.23 mGy. TECHNIQUE: Upper GI series was performed followed by a small bowel follow- through. FINDINGS: Survey Chief KUB demonstrates an unremarkable bowel gas pattern. Esophageal motility was normal. No esophageal mass or stricture was identified. No hiatal hernia was identified. No reflux was elicited. Gastric fold pattern was normal. Duodenal fold pattern was normal.] The caliber of the jejunum and ileum are normal. No transition point was identified. No definite mucosal abnormality was identified. Transit time to the cecum was normal at 2 hours [address] ileum was within normal limits. IMPRESSION: Unremarkable upper GI series and small bowel follow-through. ACT 112: Negative or not required by law. Electronically signed by: Juan M Jaquez M.D. 03/18/2023 11:39 AM
[2023-03-18] MEDS ORDERED: cefTRIAXone SODIUM 2,000 MG in DEXTROSE 5% 50 ML IV SCH (15:30)
[2023-03-18 16:37] LABS: Lyme Ab IgG w/WB Rflx Negative (Negative); Lyme Ab IgM w/WB Rflx Negative (Negative)
[2023-03-18] MEDS: CHOLESTYRAMINE LIGHT 4 GM PKT PO SCH (21:44)
[2023-03-19 01:23] LABS: IgA Serum 145 mg/dL (70-320); Tis Trans IgA <1.0 U/mL
[2023-03-19 01:57] LABS: BUN Creatinine Ratio 20.8 (10-20); Calcium 8.8 mg/dl (8.6-10.3); Creatinine Clr Calc Pharmacy 86.4 ml/min; Est GFR (African American) 83.8 ml/min; Est GFR (Non-African American) 72.3 ml/min; Magnesium 1.7 mg/dl (1.7-2.4); Potassium 3.3 mmol/L (3.5-5.1)
[2023-03-19] MEDS ORDERED: MAGNESIUM SULFATE / D5W 1 GM/100 ML BAG IV ONE (05:56)
[2023-03-19] MEDS ORDERED: POTASSIUM CHLORIDE CRTAB 20 MEQ TABCR PO STA (05:56)
[2023-03-19] MEDS ORDERED: MAGNESIUM OXIDE 400 MG TAB PO STA (06:06)
[2023-03-19 06:19] LABS: Basophils # (auto) 0.05 K/uL (0-0.2); Basophils % (auto) 0.6 %; Eosinophils % (auto) 3.5 %; Hematocrit (blood only) 33.9 % (42.0-52.0); Hemoglobin 11.4 g/dl (14.0-18.0); Immature Granulocytes # (auto) 0.05 K/uL (0.01-0.20); Immature Granulocytes % (auto) 0.6 %; Lymphocytes # (auto) 1.78 K/uL (1.2-3.4); Mean Corpuscular Hemoglobin 31.9 pg (25.0-34.0); Mean Corpuscular Hgb Conc 33.6 g/dL (32.0-36.0); Mean Platelet Volume 9.7 fL (9.4-12.4); Monocytes # (auto) 0.88 K/uL (0.11-0.59); Monocytes % (auto) 10.4 %; Neutrophils # (auto) 5.43 K/uL (1.40-6.50); Neutrophils % (auto) 63.9 %; Platelet Count 319 K/uL (130-400); RDW Coefficient of Variation 13.6 % (11.5-14.5); RDW Standard Deviation 47.1 fL (36.4-46.3); Red Blood Count 3.57 M/uL (4.70-6.10); White Blood Count 8.49 K/ul (4.8-10.8)
[2023-03-19 06:40] LABS: BUN Creatinine Ratio 18.6 (10-20); Calcium 8.7 mg/dl (8.6-10.3); Creatinine Clr Calc Pharmacy 89.8 ml/min; Est GFR (African American) 87.7 ml/min; Est GFR (Non-African American) 75.7 ml/min; Magnesium 1.7 mg/dl (1.7-2.4); Potassium 3.4 mmol/L (3.5-5.1)
[2023-03-19 06:47] LABS: Troponin I High Sensitivity 10.5 pg/ml (0-20)
[2023-03-19] MEDS: CETIRIZINE HCL 10 MG TABLET PO SCH (08:21)
[2023-03-19] MEDS: CHOLECALCIFEROL 1,000 UNITS 25 MCG TAB PO SCH (08:21)
[2023-03-19] MEDS: GABAPENTIN 100 MG CAP PO SCH (08:21)
[2023-03-19] MEDS: FLUTICASONE PROPIONATE NA SPR 16 GM BTL SCH (08:21)
[2023-03-19] MEDS: CHOLESTYRAMINE LIGHT 4 GM PKT PO SCH (10:40)
--- NOTE | 2023-03-19 11:02 | Cardiology Consultation ---
Date of Consultation March 19, 2023 Assessment & Plan (1) AV block, 2nd degree: (2) Acute renal failure: Plan Patient is a 68-year-old male admitted for noncardiac issues with acute renal failure secondary to dehydration diarrhea. Baseline EKG sinus rhythm with marked first-degree AV block. Telemetry last night demonstrating increased AV block with Mobitz type II second-degree AV block with transient higher degree AV block. Patient asymptomatic during events Renal function has returned to normal. Mild hypokalemia only and electrolytes, normal thyroid function No myocardial injury by troponin Echocardiogram with subtle hypokinesis of the septum with otherwise preserved LV systolic function Impression: Second-degree AV block with intermittent pauses. Patient with history of prior recommendation of pacemaker for similar events. Patient initially declining due to asymptomatic state. Discussed results of telemetry demonstrating findings consistent with AV block significant enough once again to consider pacemaker insertion Appointment to reevaluate previously with primary evaluation advisor scheduled [address] Apodaca, [facility] Suspect patient will choose to follow-up with primary cardiology rather than proceed with pacemaker insertion this admission Dr. Apodaca's office contacted Would recommend no driving until patient is evaluated Addendum plan as above. Discussed with Dr. Apodaca's office who will be contacting regarding permanent pacemaker insertion History of Present Illness Reason for Consultation: High degree AV block Requesting Physician: Dr. Cochran Attending Physician: Toby Cochran MD History of Present Illness Patient is a 68-year-old male with limited local records who presented this admission with 1 month history of severe diarrhea, 15 pound weight loss, dehydration and acute renal failure. Clinical course improving in hospital but on telemetry last night noted to have increasing AV block with Mobitz type I and Mobitz type II with short pauses. Patient asymptomatic Denies any prior history of syncope or near syncope Follows with cardiology in [place]. Previously recommended to have pacemaker placed approximately 1 year ago for similar complaints but patient deferred due to asymptomatic state He denies history rheumatic fever scarlet fever TIA or stroke. Notes no history of chest pain shortness of breath, tachypalpitations. Generally active without specific limitation. Allergies Allergy/AdvReac Type Severity Reaction Status Date / Time No Known Allergies Allergy Verified 03/17/23 11:58 Home Medications Medication Instructions Recorded Confirmed Type amlodipine 10 mg tablet 5 mg PO DAILY 03/15/23 03/15/23 History ascorbic acid (vitamin C) 1,000 mg 1,000 mg PO DIRECTED 03/15/23 03/15/23 History capsule aspirin 81 mg tablet,delayed 81 mg PO DAILY 03/15/23 03/17/23 History release (Adult Low Dose Aspirin) baclofen 10 mg tablet 10 mg PO TID 03/15/23 03/15/23 History cetirizine 10 mg capsule (Zyrtec) 10 mg PO DAILY 03/15/23 03/15/23 History cholecalciferol (vitamin D3) 50 50 mcg PO DAILY 03/15/23 03/15/23 History mcg (2,000 unit) tablet (Vitamin D3) cyanocobalamin (vitamin B-12) 2,500 mcg sublingual DAILY 03/15/23 03/15/23 History 2,500 mcg sublingual lozenge diphenoxylate-atropine 2.5 2 tab PO TID PRN Diarrhea 03/15/23 03/15/23 History mg-0.025 mg tablet fluticasone propionate 50 2 spray intranasal DAILY 03/15/23 03/15/23 History mcg/actuation nasal spray,suspension gabapentin 100 mg capsule 100 mg PO TID 03/15/23 03/15/23 History glucosamine sulfate 750 mg tablet 750 mg PO DAILY 03/15/23 03/15/23 History (OptiFlex-G) lactobacillus combination no.4 3 0 mmu cells PO DAILY 03/15/23 03/15/23 History billion cell capsule (Probiotic) ondansetron 4 mg disintegrating 4 mg translingual Q8 PRN 03/15/23 03/15/23 History tablet nausea/vomiting tamsulosin 0.4 mg capsule 0.4 mg PO DAILY 03/15/23 03/15/23 History cholestyramine-aspartame 4 gram 4 g PO BID@1000,2200 #60 ea 03/19/23 Rx oral powder for susp in a packet (Prevalite) doxycycline hyclate 100 mg capsule 100 mg PO BID 7 days #14 caps 03/19/23 Rx Patient History Medical History Diarrhea Encounter for pre-operative examination HTN (hypertension) Sinusitis ENT Dr. 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 Feels Safe at Home: Yes Safety Concerns: Feels Safe At This Time Assistive Devices: None Review of Systems Review of Systems: All systems reviewed & are unremarkable except as noted in HPI & below Physical Exam Constitutional: WD/WN, vitals as above + obese; no acute distress Eyes: PERRL, conjunctivae normal, anicteric sclerae ENMT: external ear and nose normal, oropharynx normal Neck: trachea midline, no thyromegaly Respiratory: normal respiratory effort, lungs clear to auscultation Cardiovascular: RRR, no murmur, no edema Gastrointestinal (Abdomen): normal bowel sounds, soft, nontender, no hepatosplenomegaly Musculoskeletal: no cyanosis or clubbing, extremities motor strength 5/5 Skin: no rashes, warm and dry Results & Data Vital Signs (Past 12 Hours) Vital Signs Temp Pulse Pulse Pulse Resp BP BP 03/19/23 07:56 36.6 C 59 L 18 126/78 03/19/23 07:12 61 03/19/23 06:30 132/84 03/19/23 02:36 47 L 03/19/23 02:00 36.6 C 50 L 16 134/73 03/19/23 00:06 63 16 128/67 Pulse Ox O2 Del Method 03/19/23 07:56 98 Room Air 03/19/23 07:12 03/19/23 06:30 03/19/23 02:36 03/19/23 02:00 94 Room Air 03/19/23 00:06 94 Room Air Laboratory Results Laboratory Results - last 24 hr 03/16/23 03/18/23 03/19/23 14:34 15:27 01:24 WBC RBC Hgb Hct MCV MCH MCHC RDW Std Deviation RDW Coeff of Radha Plt Count MPV Immature Gran % (Auto) Neut % (Auto) Lymph % (Auto) [place] % (Auto) Eos % (Auto) Baso % (Auto) Neut # (Auto) Lymph # (Auto) [place] # (Auto) Eos # (Auto) Baso # (Auto) Immature Gran # (Auto) Sodium 140 Potassium 3.3 L Chloride 115 H Carbon Dioxide 17 L Anion Gap 8 BUN 22 Creatinine 1.06 Est Cr Clr Drug Dosing 86.4 Est GFR ( Amer) 83.8 Est GFR (Non-Af Amer) 72.3 BUN/Creatinine Ratio 20.8 H Glucose 103 H Calcium 8.8 Magnesium 1.7 Troponin I High Sens IgA 145 Tiss Transglutamin IgA <1.0 Celiac Disease Interp SEE NOTE Lyme Disease IgG Ab Negative Lyme Disease IgM Ab Negative 03/19/23 03/19/23 03/19/23 01:24 05:59 05:59 WBC 8.49 RBC 3.57 L Hgb 11.4 L Hct 33.9 L MCV 95.0 MCH 31.9 MCHC 33.6 RDW Std Deviation 47.1 H RDW Coeff of Radha 13.6 Plt Count 319 MPV 9.7 Immature Gran % (Auto) 0.6 Neut % (Auto) 63.9 Lymph % (Auto) 21.0 [place] % (Auto) 10.4 Eos % (Auto) 3.5 Baso % (Auto) 0.6 Neut # (Auto) 5.43 Lymph # (Auto) 1.78 [place] # (Auto) 0.88 H Eos # (Auto) 0.30 Baso # (Auto) 0.05 Immature Gran # (Auto) 0.05 Sodium 141 Potassium 3.4 L Chloride 116 H Carbon Dioxide 18 L Anion Gap 7 BUN 19 Creatinine 1.02 Est Cr Clr Drug Dosing 89.8 Est GFR ( Amer) 87.7 Est GFR (Non-Af Amer) 75.7 BUN/Creatinine Ratio 18.6 Glucose 88 Calcium 8.7 Magnesium 1.7 Troponin I High Sens 10.5 10.5 IgA Tiss Transglutamin IgA Celiac Disease Interp Lyme Disease IgG Ab Lyme Disease IgM Ab
--- NOTE | 2023-03-19 13:09 | Discharge Summary ---
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 His PCP is in [place]. Of significance he had a colonoscopy February 17, 2023 and he states he has been downhill ever since. He took 2 Dulcolax for colonoscopy prep and 2 days post colonoscopy was doing well. After then he developed watery diarrhea approximately 10 episodes a day. This continued and ended up in a hospitalization at [facility] secondary to dehydration and MATEUSZ. His creatinine on admission was 3.49. He was treated with IV hydration given magnesium supplementation and creatinine down trended to 0.8 at discharge. He continued to have diarrhea and significant poor p.o. intake with lack of appetite. Approximately 1 week ago ENT tried placing him on Augmentin for sinusitis and stopped after 2 days due to worsening diarrhea. He has even tried probiotics. He states he is at wits end and just wants to feel better. He was seen by PCP today and had OP labs done. This showed a cr of ~ 3.5 and he was hypotensive at todays visit. He was then referred to ED and opted to travel to [facility] for 2nd opinion. In ED patient was initially hypotensive with systolic blood pressure in the 70s. Admitting creatinine is 3.99 with a BUN of 66. He has a known anion gap metabolic acidosis. He is mild elevation of white count at 13,000. He received 2 L of IV fluids which improved his blood pressure Admission Exam Per Admitting Provider Constitutional: WD/WN, vitals as above, NAD, sitting up in bed, pleasant, conversing easily Head: Normocephalic, Atraumatic Eyes: PERRL, conjunctivae normal, anicteric sclerae ENMT: external ear and nose normal, oropharynx normal Neck: trachea midline, no thyromegaly normal visual inspection Respiratory: normal respiratory effort, lungs clear to auscultation, no wheeze, rales, rhonchi. Normal insp/exp effort, no accessory muscle use Cardiovascular: RRR, no murmur, no edema Vessels: no JVD or carotid bruit Chest: normal inspection of chest Abdomen: normal bowel sounds, soft, nontender, no hepatosplenomegaly Musculoskeletal: no cyanosis or clubbing, extremities motor strength 5/5 Skin: no rashes, warm and dry normal turgor Neurologic: PERRL, EOMI, accommodation nl, no face palsy, no dysarthria CN's II-XI intact bilaterally and moves all extremities Psychiatric: A+Ox3, euthymic affect Lymphatic: no cervical or axillary lymphadenopathy : deferred Principal Diagnosis Chronic diarrhea Acute renal failure Hypovolemic shock secondary to diarrhea Non-anion gap metabolic acidosis AV block Discharge Exam CONSTITUTIONAL: WNWD, vitals as above, generally well-appearing, NAD EYES: normal conjunctivae, no scleral icterus ENT: external ear and nose normal, MMM NECK: trachea midline RESPIRATORY: clear to auscultation bilaterally, no crackles, rales or wheezes, normal respiratory effort CARDIOVASCULAR: regular rate and rhythm, S1 and 2 heard without murmurs, gallops or rubs, no JVD, no peripheral edema CHEST: inspection of chest was normal GASTROINTESTINAL: soft, nontender, ND, no guarding MUSCULOSKELETAL: strength 5/5 throughout, head is normocephalic and atraumatic SKIN: warm and dry NEUROLOGIC: CN 2-12 grossly intact, no sensory deficit, normal cognition, normal speech, no tremor PSYCHIATRIC: alert cooperative and oriented to person, place and time. Euthymic mood, makes good eye contact, language grossly intact, recent and remote memory grossly intact. Discharge Data Allergies Allergy/AdvReac Type Severity Reaction Status Date / Time No Known Allergies Allergy Verified 03/17/23 11:58 Consultations 03/15/23 18:42 ED Decision to Admit Stat 03/15/23 19:10 Consult Gastroenterology Routine Consult Nephrology Routine 03/19/23 07:17 Consult Cardiology Routine Procedures Performed Operation Date: 03/17/23 17:30 Actual Procedures p Colonoscopy Biopsy Cytology - Savana Stewart MD s EGD Biopsy Cytology - Savana Stewart MD Ordered Studies 03/15/23 16:02 CT Abd and Pelvis [CT abd pelvis wo con] Urgent 03/15/23 18:08 US gallbladder Stat US renal/blad retro comp Stat 03/18/23 08:00 FL GI series with SBFT Routine Hospital Course (1) Acute renal failure: (2) Acute hypotension: (3) Metabolic acidosis, NAG, bicarbonate losses: (4) Diarrhea: Patient is a 68-year-old male who presented to the ED with MATEUSZ. Patient was recently hospitalized in OSH with diarrhea which led to prerenal MATEUSZ. He was admitted in [facility] from 03/05 to 03/06. On presentation to the ED, patient was found to have severe MATEUSZ, hypertension and non-anion gap metabolic acidosis. 1) Chronic diarrhea Presented with diarrhea for 4 weeks. Watery; no blood or mucus present. Presented with acute kidney injury, anion gap metabolic acidosis. GI evaluated the patient during the hospitalization. Work-up done during the hospitalization; CT abdomen and pelvis on 03/15no acute finding. Diverticulosis present. Sigmoidoscopy done on 03/17multiple small and large mouth diverticuli found in entire colon. Hemorrhoids on retroflexion. Biopsies taken. 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 Moderate fissuring of the mucosa of the duodenal bulb and D2. Random biopsies taken throughout the small intestine. Small bowel follow-through done on 03/18normal Thyroid function test within normal limits GI stool PCR on 03/16 negative. C. difficile on 03/16 negative Celiac serology test negative Pathology from biopsy (sigmoidoscopy/endoscopy): Small intestine biopsyactive duodenitis with focal villous blunting and increased intra-epithelial lymphocytes Stomach biopsy-Chronic focally active gastritis Terminal ileum biopsy Active ileitis without ulceration Colon biopsy Focal active colitis without ulceration The biopsies were negative for parasites, dysplasia or malignancy The likely underlying cause for the diarrhea as per GI was Omesartan. GI anticipates that his diarrhea will slowly improve. He was discharged on cholestyramine 4 BID as outpatient. Also, patient to be on low-fat diet. Minimize NSAID use. Also, follow-up with GI clinic. 2) AV block On the night of March 19, patient was found to have increased AV block with Mobitz type II second-degree AV block with transient high degree AV block. Echocardiogram was done which showed subtle hypokinesis of the septum with otherwise preserved LV systolic function Cardiology discussed with the patient; outpatient follow-up with his regional sales leader to be made at [place] for pacemaker placement. Patient was recommended not to drive till he is evaluated. Total Time Total Time Spent Total Time Spent (In Minutes): 45 Total Time Includes: Examination of the Patient, Discharge Planning, Medication Reconciliation, Communication With Other Providers and Other Discharge Plan Discharge Items Patient Disposition: Home - Self-Care Reason For Visit: MATEUSZ, NAGMA Discharge Diagnosis: Chronic diarrhea secondary to olmesartan Acute kidney injury AV block, second-degree Activity: Resume your previous activity Driving/Machine Use: No driving till you are evaluated by regional sales leader Non-emergency contact: Primary Care Provider Call non-emergency contact if: you have any medication questions and your symptoms worsen Follow-up/Referrals: Rena Tran D.O. [Primary Care Provider] - 03/23/23 11:15 am (with MOLLY Ruano) Diet: Low Fat Addtl Attending Provider Instructions: You were admitted to the hospital with diarrhea. You were evaluated by gastroenterology ( Dr. Savana Stewart) during the hospitalization. The most likely cause for the diarrhea is medication called Benicar and diclofenac. Please avoid taking this medications. The diarrhea will most likely improve in the next few weeks. You are prescribed Prevalite 4gm powder to be taken twice daily. Please drink Pedialyte if you continue to have diarrhea. It can be bought [id number]. Avoid other drinks including sodas. Please follow-up with GI clinic. You are also prescribed doxycycline 100 mg to be taken twice daily for 7 days for completion of treatment of sinusitis. If you have increased diarrhea with doxycycline. Please talk with your ENT doctor for alternative medication. During your hospitalization, you were found to have heart block. You were evaluated by regional sales leader (Dr. Cordero). Please follow-up with your regional sales leader as soon as possible for pacemaker placement. Please do not drive until you are evaluated by them. Please come back to hospital if you have episode of dizziness or syncopal episode. Please follow-up with your primary care doctor. Pending Studies at Discharge: Yes (Giardia antigen, Cryptosporidium stool test) Stand-Alone Forms: [employer], Smoking Cessation Medications and DC Order Prescriptions: New cholestyramine-aspartame [Prevalite] 4 gram Powder In Packet 4 g PO BID@1000,2200 Qty: 60 0RF doxycycline hyclate 100 mg capsule 100 mg PO BID 7 Days Qty: 14 0RF Continued baclofen 10 mg tablet 10 mg PO TID amlodipine 10 mg tablet 5 mg PO DAILY Rx Instructions: Take 1/2 tab gabapentin 100 mg capsule 100 mg PO TID fluticasone propionate 50 mcg/actuation spray,suspension 2 spray INTRANASAL DAILY aspirin [Adult Low Dose Aspirin] 81 mg tablet,delayed release (DR/EC) 81 mg PO DAILY tamsulosin 0.4 mg capsule 0.4 mg PO DAILY ondansetron 4 mg tablet,disintegrating 4 mg translingual Q8 PRN (Reason: nausea/vomiting) glucosamine sulfate [OptiFlex-G] 750 mg Tablet 750 mg PO DAILY Rx Instructions: administer with a meal cholecalciferol (vitamin D3) [Vitamin D3] 50 mcg (2,000 unit) Tablet 50 mcg PO DAILY Zyrtec 10 mg Capsule 10 mg PO DAILY Probiotic 3 billion cell Capsule 0 mmu cells PO DAILY Rx Instructions: administer with a meal cyanocobalamin (vitamin B-12) 2,500 mcg lozenge 2,500 mcg sublingual DAILY ascorbic acid (vitamin C) 1,000 mg capsule 1,000 mg PO DIRECTED Rx Instructions: Take 1 tab daily in winter diphenoxylate-atropine 2.5-0.025 mg tablet 2 tab PO TID PRN (Reason: Diarrhea) Discontinued diclofenac sodium 75 mg tablet,delayed release (DR/EC) 75 mg PO BID Discharge Orders: Discharge Order (Routine); Ordered 03/19/23 Ordered By: Toby Mckee/Other Patient Handouts: Soft Placer Diet Dc Admission Data Admit Date/Time: 03/15/23 19:20 Attending Provider: Toby Cochran Admit Provider: Rosa Mcneil Primary Care Provider: Rena Tran Other Providers: Rosa Mcneil ; Savana Stewart Roshan ; Alfredo Chen Other Interventions: Discharge Summary Assessment (RN) Last Done: 03/17/23 14:57
--- NOTE | 2023-03-19 13:49 | Electrocardiogram Report ---
Test Reason : Blood Pressure : / mmHG Vent. Rate : 053 BPM Atrial Rate : 061 BPM P-R Int : 432 ms QRS Dur : 106 ms QT Int : 394 ms P-R-T Axes : 076 024 060 degrees QTc Int : 369 ms Sinus rhythm with 2nd degree A-V block (Mobitz I) Nonspecific ST abnormality Abnormal ECG When compared with ECG of 17-MAR-2023 09:27, Sinus rhythm is now with 2nd degree A-V block (Mobitz I) Confirmed by Marc Sevilla ([id number]) on 03/19/2023 1:49:16 PM Referred By: REFERRED SELF Confirmed By:Marc Sevilla
== END 2023-03-19 14:26 | disposition home or self-care (01) | DRG 682 ==
LOC: ED 14:20 → SUATTDRO 19:20 → EDINP 19:20 → 2W 22:57 → 2S 03-19 01:54